=== PATIENT | male | born 1970 | race Caucasian/White ===

== ENCOUNTER 2017-03-28 20:59 | Emergency (ER) | payer OTHER ==
[~2017-03-28] VITALS: Ht 177.8 cm; Wt 104.6 kg
[~2017-03-28 20:59] MED LIST: OXYC1TAB3 PO
[2017-03-28 21:06] VITALS: TEMP 36.5; Ht 177.8 cm; Wt 104.6 kg
[2017-03-28] MEDS ORDERED: ALBUT/IPRATROP 3MG/0.5MG NEB 3 ML VIAL INH STA (22:04)
[2017-03-28 22:31] VITALS: O2SAT 95
[2017-03-28 22:32] LABS: BASO % 0.5 %; BASO ABS # 0.04 K/uL (0-0.2); COMPLETE YES; EOS % 1.1 %; IG% 0.4 %; LYMPH % 41.2 %; MEAN CELL VOLUME 94.5 fL (80-100); MEAN PLATELET VOLUME 9.9 fL (7.4-10.4); MONO % 7.1 %; NEUT % 49.7 %; PLATELET COUNT 150 K/uL (130-400); WHITE BLOOD COUNT 8.01 K/uL (4.8-10.8)
[2017-03-28 22:43] LABS: INR 1.2 (0.9-1.1); PARTIAL THROMBOPLASTIN RATIO 1.1; PROTHROMBIN TIME (PATIENT) 12.4 SECONDS (9.0-12.0)
[2017-03-28 22:50] LABS: BUN/CREATININE RATIO 3.4 (10-20); CALCIUM 8.9 mg/dl (8.5-10.1); CREATININE 0.61 mg/dl (0.60-1.40); MAGNESIUM 2.4 mg/dl (1.8-2.4); POTASSIUM 3.8 mmol/L (3.5-5.1)
[2017-03-28 23:01] LABS: THYROID STIMULATING HORMONE 8.6 uIu/ml (0.300-4.500)
[2017-03-28] MEDS ORDERED: METHYLPREDNISOLONE 125 MG VIAL IV STA (23:11)
[2017-03-29] MEDS ORDERED: ALBUTEROL HFA 8 GM INHALER INH STA (00:25)
[2017-03-29] MEDS ORDERED: AMOXICIL/CLAVU 875MG HOME PACK PO ONE (00:30)
[2017-03-29 01:08] VITALS: BP 141/95; PULSE 85; O2SAT 100
[2017-03-29] MEDS ORDERED: PRED50TA PO (01:18)
[2017-03-29] MEDS ORDERED: AMOX875T PO (01:18)
--- NOTE | 2017-03-29 06:32 | DIAGNOSTIC IMAGING REPORT ---
HEAD WITHOUT CONTRAST (CT) CT DOSE: 537.48 mGy.cm HISTORY: Mental status change right arm tingling TECHNIQUE: Multiaxial CT images of the head were performed without the use of intravenous contrast. A dose lowering technique was utilized adhering to the principles of ALARA. Comparison: None. Findings: The paranasal sinuses and mastoid air cells are clear. The calvarium and skull base are intact. The ventricles and sulci are within normal limits. There is no mass, hematoma, midline shift, or acute infarct. Impression: No acute intracranial abnormality. Left maxillary sinusitis The above report was generated using voice recognition software. It may contain grammatical, syntax or spelling errors. Electronically signed by: Feliciano Ovalle M.D. 03/29/2017 6:31 AM Dictated Date/Time: 03/29/2017 6:28 AM
--- NOTE | 2017-03-29 06:35 | EMERGENCY ROOM VISIT NOTE ---
History First contact with patient: 21:49 Chief Complaint: NEURO SYMPTOMS Stated Complaint: UPPER EXTREM-NUMBNESS & ALCOHOL Nursing Triage Summary: patient has been drinking since 1100 today. Has drank about 12-18 beers. Family got concerned tonight because patient had numbness in 2 fingers on his right hand. Patient also told family that he woke up this working with numbness in right forearm, which resolved on its own. Patient denies any current complaints. Hx HTN and refuses medications. History of Present Illness The patient is a 46 year old male who presents to the Emergency Room with complaints of a few minutes of right arm tingling to the fourth and fifth finger that has now resolved earlier this afternoon who is a known alcoholic and cough with wheezing for the past few weeks who smokes heavily. Patient does not routinely go to the family care doctor. He drinks at least a 12 pack daily. He has the shakes when he does not drink. He has been drinking daily for years. No known history of seizures from alcohol withdrawal but has not gone longer than a few hours without drinking. Patient denies chest pain, weakness, abdominal pain, vomiting, diarrhea, fevers, headache, neck stiffness, bleeding disorders. Patient denies drug use. Review of Systems See HPI for pertinent positives & negatives. A total of 10 systems reviewed and were otherwise negative. Past Medical/Surgical History Alcoholism, hypertension Social History Smoking Status: Current Every Day Smoker Alcohol Use: heavy Drug Use: none Marital Status: Housing Status: lives with family Occupation Status: unemployed Current/Historical Medications Scheduled Amoxicillin & Pot Clavulanate (Augmentin 875-125 mg), 1 TAB PO BID Prednisone (Prednisone), 50 MG PO DAILY Physical Exam Vital Signs Date Time Temp Pulse Resp B/P (MAP) Pulse Ox O2 Delivery O2 Flow Rate FiO2 03/29/17 01:08 85 20 141/95 100 Room Air 03/29/17 01:08 77 03/28/17 22:51 93 146/101 85 154/103 101 135/95 03/28/17 22:42 74 133/104 100 Room Air 03/28/17 22:31 95 Room Air 03/28/17 21:56 75 19 130/91 95 Room Air 03/28/17 21:22 73 03/28/17 21:07 95 Room Air 03/28/17 21:06 36.5 75 93 Room Air Physical Exam VITALS: Vitals are noted on the nurse's note and reviewed by myself. Vital signs stable. GENERAL: Pleasant male with EtOH odor and tobacco odor, in no acute distress, nondiaphoretic, well-developed well-nourished. SKIN: The skin was without rashes, erythema, edema, or bruising. There is no tenting of the skin. Capillary reflex less than 2 seconds. HEAD: Normocephalic atraumatic. EARS: External auditory canals clear, tympanic membranes pearly marcelo without erythema or effusion bilaterally. EYES: Pupils equal round and reactive to light and accommodation. Conjunctivae with injection, sclerae without icterus. Extraocular movements intact. NOSE: Patent, turbinates without inflammation or discharge. No sinus tenderness. MOUTH: Mucous membranes mildly dry. Pharynx without erythema or exudate. Uvula midline. Airway patent. Tongue does not deviate. NECK: Supple without nuchal rigidity. No lymphadenopathy. No thyromegaly. Cervical spine is nontender. No JVD. HEART: Regular rate and rhythm without murmurs gallops or rubs. LUNGS: Diffuse inspiratory and end expiratory wheezes. No dullness to percussion. No retractions or accessory muscle use. ABDOMEN: Positive bowel sounds x 4. Normal tympanic percussion. Soft, protuberant, obese, nontender, without masses or organomegaly. Olmos sign negative. No guarding or rebound tenderness. MUSCULOSKELETAL: No muscle atrophy, erythema,noted. Minimal peripheral edema to lower extremities NEURO: Patient was alert and oriented to person place and time. Normal sensation to light and sharp touch. No focal neurological deficits. Cranial nerves II through XII grossly intact. 5 out of 5 strength throughout. Medical Decision & Procedures Laboratory Results 03/28/17 22:23 Red Blood Count 5.50, Mean Corpuscular Volume 94.5, Mean Corpuscular Hemoglobin 34.0, Mean Corpuscular Hemoglobin Concent 36.0, Mean Platelet Volume 9.9, Neutrophils (%) (Auto) 49.7, Lymphocytes (%) (Auto) 41.2, Monocytes (%) (Auto) 7.1, Eosinophils (%) (Auto) 1.1, Basophils (%) (Auto) 0.5, Neutrophils # (Auto) 3.98, Lymphocytes # (Auto) 3.30, Monocytes # (Auto) 0.57, Eosinophils # (Auto) 0.09, Basophils # (Auto) 0.04 03/28/17 22:23 Test 03/28/17 22:23 03/28/17 22:28 White Blood Count 8.01 K/uL (4.8-10.8) Red Blood Count 5.50 M/uL (4.7-6.1) Hemoglobin 18.7 g/dL (14.0-18.0) Hematocrit 52.0 % (42-52) Mean Corpuscular Volume 94.5 fL (80-100) Mean Corpuscular Hemoglobin 34.0 pg (25-34) Mean Corpuscular Hemoglobin Concent 36.0 g/dl (32-36) Platelet Count 150 K/uL (130-400) Mean Platelet Volume 9.9 fL (7.4-10.4) Neutrophils (%) (Auto) 49.7 % Lymphocytes (%) (Auto) 41.2 % Monocytes (%) (Auto) 7.1 % Eosinophils (%) (Auto) 1.1 % Basophils (%) (Auto) 0.5 % Neutrophils # (Auto) 3.98 K/uL (1.4-6.5) Lymphocytes # (Auto) 3.30 K/uL (1.2-3.4) Monocytes # (Auto) 0.57 K/uL (0.11-0.59) Eosinophils # (Auto) 0.09 K/uL (0-0.5) Basophils # (Auto) 0.04 K/uL (0-0.2) RDW Standard Deviation 45.5 fL (36.4-46.3) RDW Coefficient of Variation 13.1 % (11.5-14.5) Immature Granulocyte % (Auto) 0.4 % Immature Granulocyte # (Auto) 0.03 K/uL (0.00-0.02) Prothrombin Time 12.4 SECONDS (9.0-12.0) Prothromb Time International Ratio 1.2 (0.9-1.1) Activated Partial Thromboplast Time 28.7 SECONDS (21.0-31.0) Partial Thromboplastin Ratio 1.1 Anion Gap 7.0 mmol/L (3-11) Est Creatinine Clear Calc Drug Dose 185.2 ml/min Estimated GFR () 139.8 Estimated GFR (Non- 120.6 BUN/Creatinine Ratio 3.4 (10-20) Calcium Level 8.9 mg/dl (8.5-10.1) Magnesium Level 2.4 mg/dl (1.8-2.4) Total Bilirubin 0.6 mg/dl (0.2-1) Direct Bilirubin 0.2 mg/dl (0-0.2) Aspartate Amino Transf (AST/SGOT) 107 U/L (15-37) Alanine Aminotransferase (ALT/SGPT) 62 U/L (12-78) Alkaline Phosphatase 122 U/L (45-117) Total Protein 7.9 gm/dl (6.4-8.2) Albumin 3.6 gm/dl (3.4-5.0) Thyroid Stimulating Hormone (TSH) 8.600 uIu/ml (0.300-4.500) Ethyl Alcohol mg/dL 260.7 mg/dl (0-3) Bedside Troponin I < 0.030 ng/ml (0-0.045) Medications Administered Medications (Trade) Dose Ordered Sig/Mariano Route Start Time Stop Time Status Last Admin Dose Admin Albuterol/ Ipratropium (Duoneb) 3 ml NOW STAT INH 03/28/17 22:04 03/28/17 22:05 DC 03/28/17 22:30 3 ML Methylprednisolone Sodium Succinate (Solu-Medrol IV) 125 mg NOW STAT IV 03/28/17 23:11 03/28/17 23:12 DC 03/28/17 23:21 125 MG Albuterol (Ventolin Hfa Inhaler) 2 puffs ONE STAT INH 03/29/17 00:25 03/29/17 00:26 DC 03/29/17 01:06 2 PUFFS Amoxicillin/ Clavulanate Potassium (Augmentin 875MG Home Pack) 1 homepack UD ONCE PO 03/29/17 00:30 03/29/17 00:31 DC 03/29/17 01:06 1 HOMEPACK ED Course Prior records/ancillary studies reviewed and summarized above. Nursing notes reviewed. Additional history obtained from family The patient's history was concerning for alcoholism with brief episode tingling in his right arm with breathing problems Differential diagnosis: Etiologies such as alcoholism, COPD, metabolic, infection, hypo/hyperglycemia, electrolyte abnormalities, cardiac sources, intracerebral event, toxicologic, neurologic, as well as others were entertained. Physical examination: As above. ER treatment provided: IV Lock By mouth fluids On reassessment the patient felt better. Diagnostics interpretation by me: ECG: Normal sinus, normal intervals, poor baseline, no acute ST-T wave changes, rate of 71. Impression normal sinus rhythm interpreted by myself The labs revealed stable H&H. INR 1.2. Alcohol 260. 2 troponins that are negative that are greater than 2 hours apart Imaging studies: Head CT with atrophy and sinusitis per stat radiology Exam and history seem consistent with COPD and alcoholism and sinus disease on CT imaging. Patient was offered information on rehabilitation for his alcohol is and and declined. Patient was strongly encouraged to quit smoking. Patient is advised take medications as directed and to follow-up family care in a few days or here in the ER sooner for chest pain, difficulty breathing, numbness, tingling, worsening signs or symptoms or as needed. Patient was neurovascularly and neurologically intact. He is well-appearing. No signs of stroke on clinical exam. The tingling could be related to his alcoholism or to an ulnar nerve irritation. By the evaluation outlined above emergent etiologies such as infection, electrolyte abnormalities, cardiac sources, intracerebral event, toxologic, neurologic, abnormalities blood glucose, metabolic, as well as others were deemed relatively unlikely. The pt/family informed about the findings as listed above. All questions were answered and pleased with the treatment. Return instructions were outlined and the patient was discharged in stable condition. Outpatient prescription management: Augmentin, prednisone Referral: The patient was referred back to primary care physician for follow-up in 2 to 3 days for a recheck of the current condition. case reviewed with my Attending Medical Decision As above Head Trauma GCS Score: 15 Medication Reconcilliation Current Medication List: was personally reviewed by me Blood Pressure Screening Patient's blood pressure: Normal blood pressure Impression Primary Impression: COPD exacerbation Additional Impressions: Alcoholism Sinusitis Tingling of right upper extremity Departure Information Dispostion Home / Self-Care Condition GOOD Prescriptions Amoxicillin & Pot Clavulanate (Augmentin 875-125 mg) 1 Tab Tab 1 TAB PO BID for 9 Days, #18 TAB Prov: Karen Cobian PA-C 03/29/17 Prednisone (Prednisone) 50 Mg Tab 50 MG PO DAILY for 4 Days, #4 TAB Prov: Karen Cobian PA-C 03/29/17 Referrals Ml Ruffin M.D. (MEDICAL) (PCP) Patient Instructions My [facility] Problem Qualifiers
--- NOTE | 2017-03-29 07:50 | DIAGNOSTIC IMAGING REPORT ---
TWO VIEW CHEST CLINICAL HISTORY: Cough. FINDINGS: PA and lateral chest radiographs are obtained. No prior studies are available for comparison at the time of dictation. The heart is top normal for projection. The mediastinal contour is within normal limits. There is nonspecific interstitial thickening. No airspace consolidation or pleural effusion is identified. There is no pneumothorax. The skeletal structures are osteopenic. There are healed left-sided rib fractures. IMPRESSION: No acute cardiopulmonary abnormality. Electronically signed by: Nuno Farley M.D. 03/29/2017 7:48 AM Dictated Date/Time: 03/29/2017 7:47 AM
== END 2017-03-29 02:01 | disposition home or self-care (01) ==
LOC: EDBD 20:59 → C.EDA 21:00
DX: J44.1 Chronic obstructive pulmonary disease with (acute) exacerbation (principal); F10.20 Alcohol dependence, uncomplicated; J32.9 Chronic sinusitis, unspecified; R20.2 Paresthesia of skin; F17.200 Nicotine dependence, unspecified, uncomplicated; I10 Essential (primary) hypertension; R40.2412 Glasgow coma scale score 13-15, at arrival to emergency department

== ENCOUNTER 2017-04-01 15:08 | Emergency (ER) | payer OTHER ==
[~2017-04-01] VITALS: Ht 172.7 cm; Wt 100.6 kg
[~2017-04-01 15:08] MED LIST changes: +AMOX875T PO; -OXYC1TAB3 PO; +PRED50TA PO
[2017-04-01 15:19] VITALS: TEMP 37.3; Ht 172.7 cm; Wt 100.6 kg
--- NOTE | 2017-04-01 15:59 | DIAGNOSTIC IMAGING REPORT ---
CHEST ONE VIEW PORTABLE HISTORY: 46 years-old Male hypertension acute hypertension. COMPARISON: Chest radiograph 03/28/2017 TECHNIQUE: Portable upright AP view of the chest FINDINGS: Cardiomediastinal and hilar silhouettes are within normal limits. There is no pneumothorax, pleural effusion, focal airspace consolidation or overt pulmonary edema. Mild chronic blunting of the left costophrenic angle suggests some scarring or atelectasis. Remote fracture of the posterior left fifth rib redemonstrated. Bones appear grossly intact. IMPRESSION: No acute cardiopulmonary process. The above report was generated using voice recognition software. It may contain grammatical, syntax or spelling errors. Electronically signed by: Shaun Prado M.D. 04/01/2017 3:58 PM Dictated Date/Time: 04/01/2017 3:57 PM
[2017-04-01 16:04] LABS: BASO % 0.3 %; BASO ABS # 0.03 K/uL (0-0.2); COMPLETE YES; EOS % 0.4 %; HEMATOCRIT 48.7 % (42-52); IG% 0.5 %; LYMPH % 20.1 %; LYMPH ABS # 2.04 K/uL (1.2-3.4); MEAN CELL VOLUME 94.7 fL (80-100); MEAN CORPUSCULAR HEMOGLOBIN 34.2 pg (25-34); MEAN CORPUSCULAR HGB CONC 36.1 g/dl (32-36); MEAN PLATELET VOLUME 10.1 fL (7.4-10.4); MONO % 7.7 %; PLATELET COUNT 128 K/uL (130-400); RED BLOOD COUNT 5.14 M/uL (4.7-6.1); WHITE BLOOD COUNT 10.15 K/uL (4.8-10.8)
--- NOTE | 2017-04-01 16:04 | EMERGENCY ROOM VISIT NOTE ---
History First contact with patient: 15:27 Chief Complaint: REFERRED BY DOCTOR Stated Complaint: DR WHITING SENT UP HERE History of Present Illness The patient is a 46 year old male who presents to the Emergency Room with complaints of high blood pressure. The patient states that he was seen by his primary care provider today for an ER follow-up visit and told that he needs to come to the emergency department because his blood pressure was high. The patient is an alcoholic and admits to drinking 4-8 of the 32 ounce cans of beer a day. He is a smoker. The patient has a history of hypertension and has been prescribed medication in the past. However, the patient has not been taking his medication for approximately 1.5 years. The patient was seen here a few days ago for a COPD exacerbation and numbness in one of his arms. The numbness has resolved. He states his breathing has improved on the steroids and antibiotics that he was prescribed. The patient denies any complaints at this time. He denies any chest pain, shortness of breath, headache or blurred vision. The patient is not interested in going to rehabilitation for his alcoholism. Review of Systems A complete 10 point review of systems was reviewed with the patient with pertinent positives and negatives as per history of present illness. All else were negative. Social History Smoking Status: Current Every Day Smoker Alcohol Use: heavy Drug Use: none Marital Status: Housing Status: lives with family Occupation Status: unemployed Current/Historical Medications Scheduled Amoxicillin & Pot Clavulanate (Augmentin 875-125 mg), 1 TAB PO BID Prednisone (Prednisone), 50 MG PO DAILY Physical Exam Vital Signs Date Time Temp Pulse Resp B/P (MAP) Pulse Ox O2 Delivery O2 Flow Rate FiO2 04/01/17 17:20 92 16 173/124 95 Room Air 04/01/17 16:12 89 04/01/17 15:50 89 16 172/116 95 Room Air 04/01/17 15:19 37.3 104 18 179/116 96 Room Air Physical Exam VITALS: Vitals are noted on the nurse's note and reviewed by myself. Vital signs stable. GENERAL: This is a 46-year-old male, unkempt appearing, well-developed well- nourished. HEAD: Normocephalic atraumatic. EARS: External auditory canals clear, tympanic membranes pearly marcelo without erythema or effusion bilaterally. EYES: Pupils equal round and reactive to light and accommodation. Mild scleral icterus. No papilledema on funduscopic exam. MOUTH: Mucous membranes slightly dry. NECK: Supple without nuchal rigidity. HEART: Regular rate and rhythm without murmurs gallops or rubs. LUNGS: Clear to auscultation bilaterally without wheezes, rales or rhonchi. MUSCULOSKELETAL: Strength 5/5 throughout. NEURO: Patient was alert and oriented to person place and time. Normal sensation to light and sharp touch. Medical Decision & Procedures Laboratory Results 04/01/17 15:45 Red Blood Count 5.14, Mean Corpuscular Volume 94.7, Mean Corpuscular Hemoglobin 34.2, Mean Corpuscular Hemoglobin Concent 36.1, Mean Platelet Volume 10.1, Neutrophils (%) (Auto) 71.0, Lymphocytes (%) (Auto) 20.1, Monocytes (%) (Auto) 7.7, Eosinophils (%) (Auto) 0.4, Basophils (%) (Auto) 0.3, Neutrophils # (Auto) 7.21, Lymphocytes # (Auto) 2.04, Monocytes # (Auto) 0.78, Eosinophils # (Auto) 0.04, Basophils # (Auto) 0.03 04/01/17 15:45 Test 04/01/17 15:45 White Blood Count 10.15 K/uL (4.8-10.8) Red Blood Count 5.14 M/uL (4.7-6.1) Hemoglobin 17.6 g/dL (14.0-18.0) Hematocrit 48.7 % (42-52) Mean Corpuscular Volume 94.7 fL (80-100) Mean Corpuscular Hemoglobin 34.2 pg (25-34) Mean Corpuscular Hemoglobin Concent 36.1 g/dl (32-36) Platelet Count 128 K/uL (130-400) Mean Platelet Volume 10.1 fL (7.4-10.4) Neutrophils (%) (Auto) 71.0 % Lymphocytes (%) (Auto) 20.1 % Monocytes (%) (Auto) 7.7 % Eosinophils (%) (Auto) 0.4 % Basophils (%) (Auto) 0.3 % Neutrophils # (Auto) 7.21 K/uL (1.4-6.5) Lymphocytes # (Auto) 2.04 K/uL (1.2-3.4) Monocytes # (Auto) 0.78 K/uL (0.11-0.59) Eosinophils # (Auto) 0.04 K/uL (0-0.5) Basophils # (Auto) 0.03 K/uL (0-0.2) RDW Standard Deviation 45.7 fL (36.4-46.3) RDW Coefficient of Variation 13.1 % (11.5-14.5) Immature Granulocyte % (Auto) 0.5 % Immature Granulocyte # (Auto) 0.05 K/uL (0.00-0.02) Anion Gap 5.0 mmol/L (3-11) Est Creatinine Clear Calc Drug Dose 160.0 ml/min Estimated GFR () 134.5 Estimated GFR (Non- 116.0 BUN/Creatinine Ratio 6.4 (10-20) Calcium Level 8.4 mg/dl (8.5-10.1) Total Bilirubin 1.6 mg/dl (0.2-1) Aspartate Amino Transf (AST/SGOT) 113 U/L (15-37) Alanine Aminotransferase (ALT/SGPT) 83 U/L (12-78) Alkaline Phosphatase 92 U/L (45-117) Troponin I < 0.015 ng/ml (0-0.045) Total Protein 7.2 gm/dl (6.4-8.2) Albumin 3.4 gm/dl (3.4-5.0) Globulin 3.8 gm/dl (2.5-4.0) Albumin/Globulin Ratio 0.9 (0.9-2) ECG Rate (beats per minute): 84 Rhythm: normal sinus Findings: no acute ischemic change, no ectopy Medical Decision Differential diagnosis includes hypertension, hypertensive emergency, among others. The patient is a 46-year-old male who presents today for evaluation of high blood pressure. The patient was sent here by his primary care provider. He has a history of high blood pressure and has not been taking his medication. Labs revealed mild thrombocytopenia as well as elevation of LFTs consistent with patient's alcoholism. Labs are otherwise unremarkable. There is no evidence of end organ dysfunction secondary to the patient's hypertension. Troponin is not elevated. EKG is unremarkable. I do not feel that the patient requires urgent lowering of his blood pressure. He has been sent a prescription for lisinopril/hydrochlorothiazide to the pharmacy. He was encouraged to fill this and begin taking it daily. I advised him to follow up with his primary care provider next week for a recheck of his blood pressure. The patient remained asymptomatic throughout his stay in the emergency department. The patient's case was reviewed with Dr. Ha, ED attending physician, who agreed with my assessment and treatment plan. Based on the patient's presentation and work up, I feel the patient is stable for outpatient treatment. The patient was educated to return to the emergency department for any worsening of their current condition or new/concerning symptoms. He will follow up with his primary care provider. Medication Reconcilliation Current Medication List: was personally reviewed by me Blood Pressure Screening Patient's blood pressure: Elevated blood pressure Blood pressure disposition: Referred to PCP Impression Primary Impression: Hypertension Departure Information Dispostion Home / Self-Care Condition GOOD Referrals Ml Whiting M.D. (MEDICAL) (PCP) Patient Instructions My [facility] [employer] Additional Instructions Take your blood pressure medication daily as prescribed. Try to decrease your alcohol use. Follow-up with your primary care provider for a recheck of your blood pressure next week. Return to the emergency department with any chest pain, shortness of breath, headaches, blurred vision or other new/concerning symptoms.
[2017-04-01 16:22] LABS: ALT/SGPT 83 U/L (12-78); AST/SGOT 113 U/L (15-37); BLOOD UREA NITROGEN 4 mg/dl (7-18); BUN/CREATININE RATIO 6.4 (10-20); CALCIUM 8.4 mg/dl (8.5-10.1); CARBON DIOXIDE 33 mmol/L (21-32); CHLORIDE 95 mmol/L (98-107); CREATININE 0.67 mg/dl (0.60-1.40); GLUCOSE 105 mg/dl (70-99); POTASSIUM 3.5 mmol/L (3.5-5.1); SODIUM 133 mmol/L (136-145)
[2017-04-01 16:26] LABS: ALB/GLOB RATIO 0.9 (0.9-2); ALKALINE PHOSPHATASE 92 U/L (45-117)
[2017-04-01 17:20] VITALS: BP 173/124; PULSE 92; O2SAT 95
== END 2017-04-01 17:41 | disposition home or self-care (01) ==
LOC: C.EDB 15:09 → C.EDC 17:41
DX: I10 Essential (primary) hypertension (principal); J44.9 Chronic obstructive pulmonary disease, unspecified; F10.20 Alcohol dependence, uncomplicated; F17.210 Nicotine dependence, cigarettes, uncomplicated

== ENCOUNTER 2019-01-18 19:52 | Inpatient (IN) ==
[2019-01-18] MEDS ORDERED: MULTI-VITAMIN INFUSION 10 ML, THIAMINE HCL 100 MG, FOLIC ACID 1 MG in SODIUM CHLORIDE 0... IV STA (20:16)
[2019-01-18 20:43] LABS: Basophils # (auto) 0.05 K/uL (0-0.2); Basophils % (auto) 0.4 %; Eosinophils # (auto) 0.07 K/uL (0-0.5); Eosinophils % (auto) 0.5 %; Hematocrit (blood only) 39.7 % (42-52); Hemoglobin 14.3 g/dL (14.0-18.0); Immature Granulocytes # (auto) 0.08 K/uL (0.00-0.02); Immature Granulocytes % (auto) 0.6 %; Lymphocytes # (auto) 3.36 K/uL (1.2-3.4); Lymphocytes % (auto) 25.4 %; Mean Platelet Volume 10.1 fL (7.4-10.4); Monocytes # (auto) 1.31 K/uL (0.11-0.59); Monocytes % (auto) 9.9 %; Neutrophils # (auto) 8.37 K/uL (1.4-6.5); Neutrophils % (auto) 63.2 %; Platelet Count 163 K/uL (130-400); RDW Coefficient of Variation 14.5 % (11.5-14.5); RDW Standard Deviation 52.8 fL (36.4-46.3); Red Blood Count 3.97 M/uL (4.7-6.1); White Blood Count 13.24 K/uL (4.8-10.8)
--- NOTE | 2019-01-18 20:52 | XRay Report ---
XR chest 1V portable HISTORY: Atypical Chest Pain COMPARISON: Chest 04/01/2017. FINDINGS: The lungs are clear. The heart is normal in size. No pleural effusions. No pneumothorax. Ol d, healed left-sided rib fractures. IMPRESSION: No significant change compared to the prior study. No acute process. Electronically signed by: Rey Wang M.D. 01/18/2019 8:50 PM
[2019-01-18 21:00] LABS: INR 1.4 (0.9-1.1); Prothrombin Time 14.3 Seconds (9.0-12.0)
[2019-01-18 21:06] LABS: Alanine Aminotransferase 35 U/L (12-78); Albumin Level 2.8 gm/dl (3.4-5.0); Aspartate Aminotransferase 85 U/L (15-37); BUN Creatinine Ratio 4.4 (10-20); Bilirubin Direct 1.2 mg/dl (0-0.2); Blood Urea Nitrogen 3 mg/dl (7-18); Calcium 7.7 mg/dl (8.5-10.1); Carbon Dioxide 29 mmol/L (21-32); Chloride 98 mmol/L (98-107); Est GFR (African American) 138.8; Est GFR (Non-African American) 119.7; Glucose 93 mg/dl (70-99); Magnesium 1.9 mg/dl (1.8-2.4); Potassium 3.4 mmol/L (3.5-5.1); Sodium 135 mmol/L (136-145)
[2019-01-18 21:09] LABS: Albumin Globulin Ratio 0.6 (0.9-2); Alkaline Phosphatase 145 U/L (45-117); Bilirubin,Total 2.8 mg/dl (0.2-1); Phosphorus 2.3 mg/dl (2.5-4.9); Total Protein 7.8 gm/dl (6.4-8.2); Troponin I < 0.015 ng/ml (0-0.045)
[2019-01-18] MEDS ORDERED: VANCOMYCIN HCL 2,000 MG in SODIUM CHLORIDE 0.9% 500 ML IV ONE (23:35)
[2019-01-18] MEDS ORDERED: VANCOMYCIN CONSULT ACTIVE PRN (23:35)
[2019-01-18] MEDS ORDERED: CEFEPIME 2,000 MG/20 ML VIAL IV STA (23:35)
--- NOTE | 2019-01-18 23:43 | Emergency Department Note ---
Entered by Betty Garcia acting as a scribe for Jax Ha MD History of Present Illness General Chief complaint: Leg Injury/Pain Stated complaint: LEFT LEG SWELLING AND TURNING PURPLE Time Seen by Provider: 01/18/19 20:00 Source: patient History of Present Illness Provider complaint: leg pain Onset (ago): month(s) 1 Location: lower extremity and left Pain Consistency: + other (worsening) Maximum Pain Intensity: 7 Relieved By: + none Associated symptoms: + other (-diarrhea, +left leg swelling); no cough, no fever/chills and no nausea/vomiting The patient is a 48 year old male who presents to the Emergency Room with complaints of worsening left leg pain that started a month ago. The patient reports that his left leg started to swell and the pain worsened. He denies any fever, chills, nausea, vomiting, diarrhea, or cough. He notes that he has a history of alcoholism and notes that he drinks five 32 oz beers a day. Home Medications Home Medications Medication Instructions Recorded Confirmed Type ibuprofen [Advil] 400 - 800 mg PO TID PRN 01/18/19 01/18/19 History Allergies Allergy/AdvReac Type Severity Reaction Status Date / Time No Known Allergies Allergy Unverified 03/28/17 21:27 Past Med/Surg History Medical History Alcoholism (Acute) Social History Feels Safe at Home: Yes Smoking Status: Current every day smoker Review of Systems See HPI for pertinent positives & negatives. and A total of 10 systems reviewed and were otherwise negative Physical Exam Vital Signs Vital Signs - 24 hr 01/18/19 19:56 01/18/19 20:39 01/18/19 22:03 Temperature 37.2 C Temperature Source Oral Sepsis Recent Fever Within 48 Hours No Sepsis New/Unexplained Change in Mental Status No Sepsis Action Taken by Nursing No Action Required Pulse Rate 93 H 99 H Pulse Rhythm Regular Respiratory Rate 18 25 H Respiratory Effort / Characteristics Non-Labored Spontaneous Respiratory Depth Normal Respiratory Pattern Regular Blood Pressure 171/93 H 168/109 H Blood Pressure [Right Arm] Blood Pressure Mean 119 128 Blood Pressure Mean [Right Arm] Blood Pressure Position Sitting Pulse Oximetry 98 96 Oxygen Delivery Method Room Air Room Air 01/18/19 22:09 01/18/19 22:30 01/18/19 23:35 Temperature Temperature Source Sepsis Recent Fever Within 48 Hours Sepsis New/Unexplained Change in Mental Status Sepsis Action Taken by Nursing Pulse Rate 104 H 105 H Pulse Rhythm Respiratory Rate 26 H 21 20 Respiratory Effort / Characteristics Non-Labored Spontaneous Respiratory Depth Normal Respiratory Pattern Blood Pressure Blood Pressure [Right Arm] 159/97 H Blood Pressure Mean Blood Pressure Mean [Right Arm] 117 Blood Pressure Position Pulse Oximetry 98 Oxygen Delivery Method Room Air GENERAL: Awake, alert, unkempt/discheveled-appearing, in no distress. HENT: Normocephalic, atraumatic. Oropharynx with dry mucous membranes and poor dentition. EYES: Normal conjunctiva. Sclera with mild icterus. EOMI. No nystamgus. PEARRL. NECK: Supple. No nuchal rigidity. FROM. No JVD. RESPIRATORY: CTAB. CARDIAC: Regular rate, normal rhythm. Extremities warm and well perfused. Pulses equal. ABDOMEN: Distended abdomen, but soft. No tenderness to palpation. No rebound or guarding. No masses. RECTAL: Deferred. MUSCULOSKELETAL: Chest examination reveals no tenderness. The back is symmetrical on inspection without obvious abnormality. There is no CVA tenderness to palpation. No joint edema. LOWER EXTREMITIES: 3 + pitting edema of left lower extremity with mild erythema and warmth extending from from mid-thight to foot. Distal PMS intact. 2+ pitting edema to the right lower extremity. NEURO: Normal sensorium. No sensory or motor deficits noted. SKIN: Warm and dry. No jaundice noted. Course 2009: The patient was evaluated in room B8, and a complete history and physical examination were performed. 2340: Case was discussed with Dr. Gonzales, [facility] hospitalist, who will evaluate the patient for admission. Administered Medications Ioversol (Optiray 320 100ml) 94 ml IV ONCE PRN PRN Reason: Interaction Checking Stop: 01/23/19 00:56 Last Admin: 01/19/19 00:58 Dose: 94 ml Documented by: [id number] Discontinued Medications Gabapentin (Neurontin) 1,200 mg PO ONE STA Stop: 01/18/19 23:58 Last Admin: 01/19/19 00:24 Dose: 1,200 mg Documented by: [id number] Multivitamins 10 ml/ Thiamine HCl 100 mg/ Folic Acid 1 mg/Sodium Chloride 1,011.2 mls @ 1,011.2 mls/hr IV .Q1H STA Stop: 01/18/19 21:15 Last Infusion: 01/18/19 22:29 Dose: 0 mls/hr Documented by: [id number] Admin: 01/18/19 21:06 Dose: 1,011.2 mls/hr Documented by: [id number] Cefepime HCl (Maxipime) 2,000 mg in 20 mls @ 5 mls/min IV NOW STA; Protocol Stop: 01/18/19 23:38 Last Admin: 01/19/19 00:25 Dose: 5 mls/min Documented by: [id number] Multivitamins 10 ml/ Thiamine HCl 100 mg/ Folic Acid 1 mg/Sodium Chloride 1,011.2 mls @ 1,011.2 mls/hr IV .Q1H MCKENZIE Stop: 01/19/19 00:44 Last Infusion: 01/19/19 01:57 Dose: 0 mls/hr Documented by: [id number] Admin: 01/19/19 00:18 Dose: 1,011.2 mls/hr Documented by: [id number] Lorazepam (Ativan) 1 mg in 2 mls @ 2 mls/min IV NOW STA Stop: 01/18/19 23:54 Last Admin: 01/19/19 00:18 Dose: 2 mls/min Documented by: [id number] Piperacillin Sod/Tazobactam Sod (Zosyn) 4.5 gm in 120 mls @ 240 mls/hr IV NOW ONE Stop: 01/19/19 01:05 Last Admin: 01/19/19 00:47 Dose: 240 mls/hr Documented by: [id number] Lorazepam (Ativan) 1 mg in 2 mls @ 2 mls/min IV NOW STA Stop: 01/19/19 00:38 Last Admin: 01/19/19 01:08 Dose: 2 mls/min Documented by: [id number] Piperacillin Sod/Tazobactam Sod (Zosyn) Confirm Administered Dose 4.5 gm .ROUTE .STK-MED ONE Stop: 01/19/19 00:39 Last Admin: 01/19/19 00:48 Dose: Not Given Documented by: [id number] Potassium Chloride (Klor-Con M20) 40 meq PO NOW STA Stop: 01/18/19 23:48 Last Admin: 01/19/19 00:24 Dose: 40 meq Documented by: [id number] Medical Decision Making Differential Diagnosis Differential diagnosis: Etiologies such as DVT, musculoskeletal, infection, joint effusion, trauma, lymphedema, idiopathic, CHF, as well as others were entertained. Medical Records Attestation: I reviewed the patient's medical records. Home Medications Current Medication List: was personally reviewed by me Laboratory Data Attestation: I reviewed the patient's lab results. Result diagrams: 01/18/19 20:32 01/18/19 20:32 Lab Results 01/18/19 01/18/19 01/18/19 Range/Units 20:32 20:32 20:32 WBC 13.24 H (4.8-10.8) K/uL RBC 3.97 L (4.7-6.1) M/uL Hgb 14.3 (14.0-18.0) g/dL Hct 39.7 L (42-52) % MCV 100.0 (80-100) fL MCH 36.0 H (25-34) pg MCHC 36.0 (32-36) g/dL RDW Std Deviation 52.8 H (36.4-46.3) fL RDW Coeff of Mac 14.5 (11.5-14.5) % Plt Count 163 (130-400) K/uL MPV 10.1 (7.4-10.4) fL Immature Gran % (Auto) 0.6 % Neut % (Auto) 63.2 % Lymph % (Auto) 25.4 % Hood % (Auto) 9.9 % Eos % (Auto) 0.5 % Baso % (Auto) 0.4 % Immature Gran # (Auto) 0.08 H (0.00-0.02) K/uL Neut # (Auto) 8.37 H (1.4-6.5) K/uL Lymph # (Auto) 3.36 (1.2-3.4) K/uL Hood # (Auto) 1.31 H (0.11-0.59) K/uL Eos # (Auto) 0.07 (0-0.5) K/uL Baso # (Auto) 0.05 (0-0.2) K/uL PT 14.3 H (9.0-12.0) Seconds INR 1.4 H (0.9-1.1) Sodium 135 L (136-145) mmol/L Potassium 3.4 L (3.5-5.1) mmol/L Chloride 98 (98-107) mmol/L Carbon Dioxide 29 (21-32) mmol/L Anion Gap 8.0 (3-11) BUN 3 L (7-18) mg/dl Creatinine 0.60 (0.6-1.4) mg/dl Est Cr Clr Drug Dosing 177.0 ml/min Est GFR ( Amer) 138.8 Est GFR (Non-Af Amer) 119.7 BUN/Creatinine Ratio 4.4 L (10-20) Glucose 93 (70-99) mg/dl Lactate (0.4-2.0) mmol/L Calcium 7.7 L (8.5-10.1) mg/dl Phosphorus 2.3 L (2.5-4.9) mg/dl Magnesium 1.9 (1.8-2.4) mg/dl Total Bilirubin 2.8 H (0.2-1) mg/dl Direct Bilirubin 1.2 H (0-0.2) mg/dl AST 85 H (15-37) U/L ALT 35 (12-78) U/L Alkaline Phosphatase 145 H (45-117) U/L Total Creatine Kinase 151 (39-308) U/L Troponin I < 0.015 (0-0.045) ng/ml Total Protein 7.8 (6.4-8.2) gm/dl Albumin 2.8 L (3.4-5.0) gm/dl Globulin 5.0 H (2.5-4.0) gm/dl Albumin/Globulin Ratio 0.6 L (0.9-2) Lipase 273 (73-393) U/L TSH 4.620 H (0.300-4.500) uIu/ml Free T4 1.21 (0.8-1.6) ng/dl Ethyl Alcohol mg/dL (0-3) mg/dl 01/18/19 01/19/19 Range/Units 20:50 00:08 WBC (4.8-10.8) K/uL RBC (4.7-6.1) M/uL Hgb (14.0-18.0) g/dL Hct (42-52) % MCV (80-100) fL MCH (25-34) pg MCHC (32-36) g/dL RDW Std Deviation (36.4-46.3) fL RDW Coeff of Mac (11.5-14.5) % Plt Count (130-400) K/uL MPV (7.4-10.4) fL Immature Gran % (Auto) % Neut % (Auto) % Lymph % (Auto) % Hood % (Auto) % Eos % (Auto) % Baso % (Auto) % Immature Gran # (Auto) (0.00-0.02) K/uL Neut # (Auto) (1.4-6.5) K/uL Lymph # (Auto) (1.2-3.4) K/uL Hood # (Auto) (0.11-0.59) K/uL Eos # (Auto) (0-0.5) K/uL Baso # (Auto) (0-0.2) K/uL PT (9.0-12.0) Seconds INR (0.9-1.1) Sodium (136-145) mmol/L Potassium (3.5-5.1) mmol/L Chloride (98-107) mmol/L Carbon Dioxide (21-32) mmol/L Anion Gap (3-11) BUN (7-18) mg/dl Creatinine (0.6-1.4) mg/dl Est Cr Clr Drug Dosing ml/min Est GFR ( Amer) Est GFR (Non-Af Amer) BUN/Creatinine Ratio (10-20) Glucose (70-99) mg/dl Lactate 1.6 (0.4-2.0) mmol/L Calcium (8.5-10.1) mg/dl Phosphorus (2.5-4.9) mg/dl Magnesium (1.8-2.4) mg/dl Total Bilirubin (0.2-1) mg/dl Direct Bilirubin (0-0.2) mg/dl AST (15-37) U/L ALT (12-78) U/L Alkaline Phosphatase (45-117) U/L Total Creatine Kinase (39-308) U/L Troponin I (0-0.045) ng/ml Total Protein (6.4-8.2) gm/dl Albumin (3.4-5.0) gm/dl Globulin (2.5-4.0) gm/dl Albumin/Globulin Ratio (0.9-2) Lipase (73-393) U/L TSH (0.300-4.500) uIu/ml Free T4 (0.8-1.6) ng/dl Ethyl Alcohol mg/dL 192.4 H (0-3) mg/dl Imaging Data Radiologist's Impression: Radiology results as stated below per my review and the radiologist's interpretation: XR chest 1V portable HISTORY: Atypical Chest Pain COMPARISON: Chest 04/01/2017. FINDINGS: The lungs are clear. The heart is normal in size. No pleural effusions. No pneumothorax. Old, healed left-sided rib fractures. IMPRESSION: No significant change compared to the prior study. No acute process. Electronically signed by: Rey Wang M.D. 01/18/2019 8:50 PM PreliminaryFindingsOnly See Final Report For Complete Findings US VENOUS BILATERAL LOWER EXTREMITIES: No DVT demonstrated. Soft tissue edema. Radiologist: Ion Hartmann M.D. Study ready at 23:26 and initial results transmitted at 23:33 ECG Data Attestation: I personally reviewed and interpreted this ECG as follows: Indication: weakness Rate (beats per minute): 85 Rhythm: normal sinus Findings: + other (normal axis and intervals) Comparison ECG Date: no prior available Blood Pressure Blood Pressure Findings: Elevated blood pressure MDM Narrative The patient is a 48-year-old gentleman with a past medical history of alcoholism, COPD who presents emergency department for worsening left lower extremity redness warmth over the past month finally coming to be medically evaluated as the patient's mother had discovered the symptoms and motivated him to come to the hospital per hpi. On arrival the patient is unkept/disheveled with odor of EtOH. Patient has mild abdominal distention but is soft and nonte nder. 3+ left lower extremity edema with mild erythema and warmth. Right lower extremity with 2+ pitting edema. EKG without overt acute ischemia. Chest x-ray negative for acute process. Bilateral lower extremity duplexes negative for DVT per preliminary stat read read. WBC 13.2, nonspecific. H/H 14.3/39.7. Platelets within normal limits. Patient's INR is elevated at 1.4 which is increased from 1.2 in 2017. Chemistry without acidosis. Creatinine within normal limits. Patient does have elevated bilirubin from 2017 with total bilirubin 2.8 and direct bilirubin 1.2 and AST 85. Troponin is negative. EtOH is 192. Given no fevers or abdominal pain, SBP unlikely. Given no DVT patient's left lower extremity erythema and warmth is most consistent with cellulitis. Considering extent of cellulitis will initiate treatment with Vancomycine and Cefepime. Additionally given the patient's worsening findings consistent with alcoholic cirrhosis reasonable to admit the patient for further evaluation. CT abdomen pelvis ordered for further clarification. Patient given Ativan and placed on CIWA given likely eventual etoh withdrawal. Case was discussed with Dr. Gonzales, [facility] hospitalist, who will evaluate the patient for admission. Impression & Plan Cellulitis, Alcoholism, Cirrhosis, Hypertension, portal Critical Care Time Critical Care Time: Yes Total Critical Care Time: 35 I have personally spent greater than 35 minutes of critical care time in the direct management of this patient. This includes bedside care, interpretation o f diagnostic studies, and testing, discussion with consultants, patient, and family members, and other required patient management activities. This 35 minutes is in excess of all separately billable procedures. Discharge Plan Visit Data Chief Complaint: Leg Injury/Pain Stated Complaint: LEFT LEG SWELLING AND TURNING PURPLE ED Provider: Jax Ha Discharge Problem: Cellulitis, Alcoholism, Cirrhosis, Hypertension, portal Discharge Instructions Interventions: ED Discharge Assessment Last Done: 01/19/19 01:17 Discharge Problem: Cellulitis Qualifiers: Site of cellulitis: extremity Site of cellulitis of extremity: lower extremity Laterality: left Qualified Code(s): L03.116 - Cellulitis of left lower limb The scribe's documentation has been prepared under my direction and personally reviewed by me in its entirety. I confirm that the note above accurately reflects all work, treatment, procedures, and medical decision making performed by me.
[2019-01-18] MEDS ORDERED: MULTI-VITAMIN INFUSION 10 ML, THIAMINE HCL 100 MG, FOLIC ACID 1 MG in SODIUM CHLORIDE 0... IV SCH (23:45)
[2019-01-18] MEDS ORDERED: POTASSIUM CHLORIDE 20 MEQ TABCR PO STA (23:47)
[2019-01-18] MEDS ORDERED: GABAPENTIN 800 MG TAB PO STA (23:51)
[2019-01-18] MEDS ORDERED: LORazepam 1 MG/2 ML VIAL IV STA (23:53)
[2019-01-18] MEDS ORDERED: GABAPENTIN 600 MG TAB PO STA (23:57)
[2019-01-19 00:26] LABS: T4 Free Thyroxine 1.21 ng/dl (0.8-1.6)
[2019-01-19] MEDS ORDERED: PIPERACILL/TAZOBAC CONSULT ACTIVE PRN (00:36)
[2019-01-19] MEDS ORDERED: PIPERACILLIN/TAZOBACTAM 4.5 GM/120 ML BAG IV ONE (00:36)
[2019-01-19] MEDS ORDERED: LORazepam 1 MG/2 ML VIAL IV STA (00:37)
[2019-01-19] MEDS ORDERED: PIPERACILLIN/TAZOBACTAM 4.5 GM/120ML D5W ONE (00:38)
--- NOTE | 2019-01-19 00:48 | History & Physical Report ---
Date of Service January 19, 2019 Assessment & Plan (1) Sepsis: Secondary to LLE cellulitis secondary to cat bite Patient refused to seek medical attention until last night. rule out osteomyelitis given protracted history hypertension, elevated secondary to illness and alcohol withdrawal COPD as per records, lung status at baseline Cirrhosis on CT, new diagnosis likely secondary to alcoholism ongoing tobacco/alcohol abuse Medical telemetry Cultures, check lactic acid Zosyn for now Plain x-ray of the left tibia-fibula RE RLE swelling of 1 month duration May need MRI to definitively rule out osteomyelitis if no findings on plain x- ray. Facilitate home lisinopril, may need titration DT precautions Outpatient GI consult for new diagnosis of cirrhosis Nicotine patch DVT prophylaxis Lovenox subcu Full code History of Present Illness Chief Complaint: Left leg swelling Primary Care Provider: Dr. Mejia History obtained from patient, family, and records. Medical history significant for hypertension, gout, COPD as per records, ongoing tobacco/alcohol abuse. Last month, patient bit by household cat on the left leg. Progressive swelling over the next few weeks. Patient refused to seek medical attention. Self-medication with topical antibiotic Rx as per . No chest pain, no S OB. Abdomen distended but not painful as per patient. At the ER, patient received Cefepime for sepsis. Medical History as above TDAP January 2010 No prior history of alcohol withdrawal seizures or confinement for alcohol withdrawal as per patient family. Surgical History : Penile wart fulguration, right forearm surgery Family History : Heart disease Personal/Social history : 1.5 packs daily, daily alcohol intake, unemployed Allergies Allergy/AdvReac Type Severity Reaction Status Date / Time No Known Allergies Allergy Unverified 03/28/17 21:27 Home Medications Home Medications Medication Instructions Recorded Confirmed Type ibuprofen [Advil] 400 - 800 mg PO TID PRN 01/18/19 01/18/19 History Past Med/Surg History Medical History Alcoholism (Acute) Social History Preferred Language: Gabonese Communication Ability: Impaired Communication Ability Comment: somnolant Milk Pasteurizer Required: No Current Living Situation: Alone Feels Safe at Home: Yes Smoking Status: Current every day smoker Tobacco Type: cigarettes ; Hx Alcohol Use: Yes Alcohol type: beer Review of Systems Review of Systems: As per HPI, all 10 systems reviewed, all other ROS negative Physical Exam Physical Exam: GENERAL: Uncomfortable, anxious, tremulous, obese, unkempt, no respiratory distress, alcoholic fetor SKIN: Normal color, warm HEENT: Goehner palpebral conjunctivae, no ptosis, black discoloration upper lip, dry buccal mucosa NECK : Supple, short neck, no tenderness CHEST : Decreased breath sounds, no tenderness HEART : Tachycardic, no obvious murmurs ABDOMEN: distention, nontender EXTREMITIES : L lower leg induration with tenderness, no other conspicuous deformities noted NEUROLOGIC : Coherent, no facial asymmetry, no other gross focality except for intention tremors, gait and stance not assessed Results & Data Vital Signs (Past 12 Hours) Vital Signs Temp Pulse Resp BP BP Pulse Ox 01/18/19 23:35 20 159/97 H 98 01/18/19 22:30 105 H 21 01/18/19 22:09 104 H 26 H 01/18/19 22:03 99 H 25 H 168/109 H 01/18/19 20:39 96 01/18/19 19:56 37.2 C 93 H 18 171/93 H 98 Laboratory Results Laboratory Results WBC 13.24 K/uL (4.8-10.8) H 01/18/19 20:32 RBC 3.97 M/uL (4.7-6.1) L 01/18/19 20:32 Hgb 14.3 g/dL (14.0-18.0) 01/18/19 20:32 Hct 39.7 % (42-52) L 01/18/19 20:32 MCV 100.0 fL (80-100) 01/18/19 20:32 MCH 36.0 pg (25-34) H 01/18/19 20:32 MCHC 36.0 g/dL (32-36) 01/18/19 20:32 RDW Std Deviation 52.8 fL (36.4-46.3) H 01/18/19 20:32 RDW Coeff of Mac 14.5 % (11.5-14.5) 01/18/19 20:32 Plt Count 163 K/uL (130-400) 01/18/19 20:32 MPV 10.1 fL (7.4-10.4) 01/18/19 20:32 Immature Gran % (Auto) 0.6 % 01/18/19 20:32 Neut % (Auto) 63.2 % 01/18/19 20:32 Lymph % (Auto) 25.4 % 01/18/19 20:32 Jerauld % (Auto) 9.9 % 01/18/19 20:32 Eos % (Auto) 0.5 % 01/18/19 20:32 Baso % (Auto) 0.4 % 01/18/19 20:32 Immature Gran # (Auto) 0.08 K/uL (0.00-0.02) H 01/18/19 20:32 Neut # (Auto) 8.37 K/uL (1.4-6.5) H 01/18/19 20:32 Lymph # (Auto) 3.36 K/uL (1.2-3.4) 01/18/19 20:32 Jerauld # (Auto) 1.31 K/uL (0.11-0.59) H 01/18/19 20:32 Eos # (Auto) 0.07 K/uL (0-0.5) 01/18/19 20:32 Baso # (Auto) 0.05 K/uL (0-0.2) 01/18/19 20:32 PT 14.3 Seconds (9.0-12.0) H 01/18/19 20:32 INR 1.4 (0.9-1.1) H 01/18/19 20:32 Sodium 135 mmol/L (136-145) L 01/18/19 20:32 Potassium 3.4 mmol/L (3.5-5.1) L 01/18/19 20:32 Chloride 98 mmol/L (98-107) 01/18/19 20:32 Carbon Dioxide 29 mmol/L (21-32) 01/18/19 20:32 Anion Gap 8.0 (3-11) 01/18/19 20:32 BUN 3 mg/dl (7-18) L 01/18/19 20:32 Creatinine 0.60 mg/dl (0.6-1.4) 01/18/19 20:32 Est Cr Clr Drug Dosing 177.0 ml/min 01/18/19 20:32 Est GFR ( Amer) 138.8 01/18/19 20:32 Est GFR (Non-Af Amer) 119.7 01/18/19 20:32 BUN/Creatinine Ratio 4.4 (10-20) L 01/18/19 20:32 Glucose 93 mg/dl (70-99) 01/18/19 20:32 Lactate 1.6 mmol/L (0.4-2.0) 01/19/19 00:08 Calcium 7.7 mg/dl (8.5-10.1) L 01/18/19 20:32 Phosphorus 2.3 mg/dl (2.5-4.9) L 01/18/19 20:32 Magnesium 1.9 mg/dl (1.8-2.4) 01/18/19 20:32 Total Bilirubin 2.8 mg/dl (0.2-1) H 01/18/19 20:32 Direct Bilirubin 1.2 mg/dl (0-0.2) H 01/18/19 20:32 AST 85 U/L (15-37) H 01/18/19 20:32 ALT 35 U/L (12-78) 01/18/19 20:32 Alkaline Phosphatase 145 U/L (45-117) H 01/18/19 20:32 Troponin I < 0.015 ng/ml (0-0.045) 01/18/19 20:32 Total Protein 7.8 gm/dl (6.4-8.2) 01/18/19 20:32 Albumin 2.8 gm/dl (3.4-5.0) L 01/18/19 20:32 Globulin 5.0 gm/dl (2.5-4.0) H 01/18/19 20:32 Albumin/Globulin Ratio 0.6 (0.9-2) L 01/18/19 20:32 Lipase 273 U/L (73-393) 01/18/19 20:32 TSH 4.620 uIu/ml (0.300-4.500) H 01/18/19 20:32 Free T4 1.21 ng/dl (0.8-1.6) 01/18/19 20:32 Ethyl Alcohol mg/dL 192.4 mg/dl (0-3) H 01/18/19 20:50 Diagnostic Findings Chest x-ray as per my interpretation no congestion EKG as per my interpretation :Rate 85, NSR, normal axis, LVH CT abdomen pelvis initial read cirrhosis with portal hypertension. Collaterals, splenomegaly, and trace fluid. Peritoneal cavity edema. Cholelithiasis. Diverticulosis. Unremarkable appendix. Old granulomatous disease possible sebaceous cyst soft tissue left buttock. Subcutaneous edema. Pelvic nodes Ultrasound venous bilateral lower extremities initial read: No DVT. Soft tissue edema
[2019-01-19] MEDS ORDERED: LISINOPRIL 5 MG TAB PO ONE ×2 (00:49→22:40)
[2019-01-19] MEDS ORDERED: OXYCODONE HCL IR 5 MG TAB (IMMEDIATE RELEASE) PO PRN (00:49)
[2019-01-19] MEDS ORDERED: PROMETHAZINE HCL 12.5 MG in SODIUM CHLORIDE 0.9% 50 ML IV PRN ×2 (00:49→01:42)
[2019-01-19 00:50] LABS: Creatine Kinase 151 U/L (39-308)
[2019-01-19] MEDS ORDERED: NICOTINE 21 MG/24 HR TDSY TD PRN (00:50)
[2019-01-19] MEDS ORDERED: IOVERSOL 100ml IV PRN (00:57)
[2019-01-19] MEDS ORDERED: GABAPENTIN 1200MG ALCOHOL WITHDRAWAL LOAD PO STA (01:42)
[2019-01-19] MEDS ORDERED: ACETAMINOPHEN 325 MG TAB PO PRN (01:42)
[2019-01-19] MEDS ORDERED: POTASSIUM PHOS 3 MMOL/1 ML INFUSION IV STA (01:42)
[2019-01-19] MEDS ORDERED: ATIVAN IV ALCOHOL WITHDRAWL IV SCH (01:42)
[2019-01-19] MEDS ORDERED: NITROGLYCERIN SL 0.4 MG/TAB TAB SL PRN (01:42)
[2019-01-19] MEDS ORDERED: POTASSIUM PHOSPHATE 18 MMOL in SODIUM CHLORIDE 0.9% 500 ML IV ONE (02:15)
[2019-01-19] MEDS ORDERED: NSS + 20MEQ KCL 20 MEQ/1,000 ML BAG IV ONE (02:15)
[2019-01-19] MEDS ORDERED: MAGNESIUM SULFATE / D5W 1 GM/100 ML BAG IV ONE (03:45)
--- NOTE | 2019-01-19 05:15 | Ultrasound Report ---
US venous doppler LE CLINICAL HISTORY: 48 years-old Male presenting with lower extremity swelling and pain. TECHNIQUE: Real-time grayscale and color and spectral Doppler ultrasound imaging of the veins of the bilateral lower extremities was performed. Compression and augmentation were also utilized. COMPARISON: None. FINDINGS: RIGHT: Common femoral vein: Patent. Greater saphenous vein (superficial): Patent. Deep femoral vein: Patent. Femoral vein: Patent. Popliteal vein: Patent. Calf veins: Patent. LEFT: Common femoral vein: Patent. Greater saphenous vein (superficial): Patent. Deep femoral vein: Patent. Femoral vein: Patent. Popliteal vein: Patent. Calf veins: Patent. Other: Left lower leg subcutaneous edema. IMPRESSION: No evidence of deep venous thrombosis. Electronically signed by: Ubaldo Nichole M.D. 01/19/2019 5:13 AM
[2019-01-19] MEDS ORDERED: ACETAMINOPHEN 65 ML IV ONE ×2 (05:30→22:39)
[2019-01-19 05:35] LABS: Basophils # (auto) 0.02 K/uL (0-0.2); Basophils % (auto) 0.2 %; Eosinophils # (auto) 0.02 K/uL (0-0.5); Eosinophils % (auto) 0.2 %; Hematocrit (blood only) 36.7 % (42-52); Hemoglobin 12.7 g/dL (14.0-18.0); Immature Granulocytes # (auto) 0.07 K/uL (0.00-0.02); Immature Granulocytes % (auto) 0.7 %; Lymphocytes # (auto) 1.63 K/uL (1.2-3.4); Lymphocytes % (auto) 17.1 %; Mean Corpuscular Hgb Conc 34.6 g/dL (32-36); Mean Platelet Volume 10.2 fL (7.4-10.4); Monocytes # (auto) 0.96 K/uL (0.11-0.59); Monocytes % (auto) 10.1 %; Neutrophils # (auto) 6.84 K/uL (1.4-6.5); Neutrophils % (auto) 71.7 %; Platelet Count 143 K/uL (130-400); RDW Coefficient of Variation 14.8 % (11.5-14.5); Red Blood Count 3.67 M/uL (4.7-6.1); White Blood Count 9.54 K/uL (4.8-10.8)
[2019-01-19] MEDS ORDERED: DOXYCYCLINE HYCLATE 100 MG in DEXTROSE 5% 100 ML IV ONE (05:45)
[2019-01-19] MEDS: GABAPENTIN 600 MG TAB PO SCH ×3 (05:50→21:38)
[2019-01-19] MEDS: PIPERACILLIN/TAZOBACTAM 3.375 GM in DEXTROSE 5% 100 ML IV SCH ×3 (05:58→22:19)
[2019-01-19 06:00] LABS: Albumin Level 2.3 gm/dl (3.4-5.0); BUN Creatinine Ratio 8.2 (10-20); Calcium 7.3 mg/dl (8.5-10.1); Creatinine Clr Calc Pharmacy 164.6 ml/min; Est GFR (African American) 135.1; Est GFR (Non-African American) 116.6; Potassium 3.4 mmol/L (3.5-5.1)
--- NOTE | 2019-01-19 06:06 | CT Scan Report ---
CT abd pelvis IV con only CLINICAL HISTORY: 48 years-old Male presenting with cirrhosis, generalized abdominal pain. TECHNIQUE: Multidetector CT of the abdomen and pelvis was performed after the administration of intra venous contrast. IV contrast: 94 mL of Optiray 320. One or more dose lowering techniques were used co nsistent with the principles of ALARA (as low as reasonably achievable), including automatic exposure control, mA or kV adjustment to individual patient size, and/or use of iterative reconstruction. COMPARISON: None. CT DOSE (mGy.cm): The estimated cumulative dose is 1721.93 mGy.cm. FINDINGS: Geochemist topogram: Unremarkable. Lung bases: Normal heart size. No pericardial or pleural effusion. No focal infiltrate or nodule at t he lung bases. Liver: Subtle mild micronodular contour of the liver may be present. No focal lesion allowing for the single phase of contrast. Patent hepatic vasculature. Biliary: No intrahepatic or extrahepatic biliary ductal dilatation. Gallbladder contains gallstones. Pancreas: Mild parenchymal atrophy. Spleen: Enlarged measuring 15 cm in maximal sagittal dimension. Adrenal glands: Normal. Kidneys and ureters: Normal. No hydronephrosis. Bladder: Circumferential bladder wall thickening. Pelvic organs: Prostate and seminal vesicles normal. Bowel: Diverticulosis of the mid sigmoid colon without wall thickening or pericolonic inflammatory ch allen. The appendix is normal. No bowel obstruction. Nonspecific mild fluid in the small bowel. Peritoneal cavity: Small retroperitoneal fluid bilaterally though greater on the right. This tracks a long the periduodenal and anterior pararenal spaces. This does not appear to emanate from the pancrea s. No free intraperitoneal gas. Lymph nodes: No enlarged lymph nodes in the abdomen or pelvis. Vasculature: Atherosclerosis of the normal caliber abdominal aorta. IVC patent. Recanalization of the periumbilical vein. Perigastric varices including at the gastroesophageal junction. Few perisplenic varices also noted. Abdominal wall: Periumbilical skin thickening and subcutaneous edema. Mild diffuse body wall edema. Musculoskeletal: Degenerative changes of the spine. Multiple subacute to chronic left lateral rib fra ctures, with persistent fracture planes. IMPRESSION: 1. Nodular contour of the liver could suggest underlying fibrosis/cirrhosis. 2. Portal hypertension is evidence by varices and splenomegaly. 3. Cholelithiasis. No evidence of cholecystitis. 4. Diverticulosis coli. No evidence of diverticulitis. 5. Bladder wall thickening suggest developing chronic bladder outlet obstruction or less likely cyst itis. Correlate with urinalysis. 6. Nonspecific skin thickening and subcutaneous edema in the periumbilical region. Correlate clinica lly to exclude cellulitis. 7. Multiple subacute to chronic left lateral rib fractures. Electronically signed by: Ubaldo Nichole M.D. 01/19/2019 6:05 AM
[2019-01-19 06:11] LABS: Albumin Globulin Ratio 0.5 (0.9-2); Bilirubin,Total 2.7 mg/dl (0.2-1); Globulin 4.4 gm/dl (2.5-4.0); Total Protein 6.7 gm/dl (6.4-8.2)
[2019-01-19] MEDS ORDERED: POTASSIUM CHLORIDE 20 MEQ TABCR PO STA (06:30)
--- NOTE | 2019-01-19 06:31 | Hospitalist Progress Note ---
Date of Service January 19, 2019 Subjective Early a.m. developments : Continues fever despite IV Zosyn administration. Patient noted to be sleepy by RN in a.m. Serum ammonia noted to be 78 AP Sepsis secondary to RLE cellulitis Add Doxycycline to Zosyn for MRSA coverage Hepatic encephalopathy Initiate lactulose GI consult Will relay to AM provider. Results & Data Vital Signs (Past 12 Hours) Vital Signs Temp Pulse Pulse Resp BP BP Pulse Ox 01/19/19 05:19 122 H 01/19/19 04:54 38.8 C H 126 H 18 117/79 91 01/19/19 01:30 38.9 C H 122 H 20 163/96 H 95 01/19/19 01:07 106 H 22 146/93 H 96 01/19/19 00:50 37.7 C H 01/18/19 23:35 20 159/97 H 98 01/18/19 22:30 105 H 21 01/18/19 22:09 104 H 26 H 01/18/19 22:03 99 H 25 H 168/109 H 01/18/19 20:39 96 01/18/19 19:56 37.2 C 93 H 18 171/93 H 98
[2019-01-19] MEDS: LACTULOSE SYRUP 20 GM/30 ML UDC PO SCH ×3 (06:41→20:41)
--- NOTE | 2019-01-19 07:29 | XRay Report ---
XR tibia fibula LT 2V CLINICAL HISTORY: 48 years-old Male presenting with LLE swelling. TECHNIQUE: Frontal and lateral views of the left lower leg were obtained. COMPARISON: None. FINDINGS: Diffuse subcutaneous edema in the lower leg. Knee joint and ankle mortise congruent. No acute fractur e or malalignment. No advanced degenerative change. IMPRESSION: 1. No acute osseous injury. 2. Nonspecific subcutaneous edema diffusely in the lower leg. Electronically signed by: Ubaldo Nichole M.D. 01/19/2019 7:28 AM
[2019-01-19] MEDS: ENOXAPARIN INJ 40 MG/0.4 ML SYR SQ SCH (08:46)
--- NOTE | 2019-01-19 09:18 | History & Physical Report ---
Date of Service January 19, 2019 History of Present Illness Chief Complaint: Alcohol use and ? cirrhosis 48 yo male with significant etoh history, admitted for fever - recent bite infection. Imaging done as part of his admission included CT of abdomen showing cirrhosis. He is denying any overt hematemesis or hematochezia. He is clinically appearing to be recovering from recent etoh use, somewhat disheveld, some bruises noted on lower face. He is alert and oriented to person/place/time when seeing him this afternoon. Seems to have insight into his need to stop drinking alcohol. Labs suggestive of mild alcoholic hepatitis (AST>ALT elevation, TB 2.5, INR 1.4, Cr normal, na normal) Alcohol present on urine tox on admission. CT with IV contrast showing cirrhosis He is on Zosyn Primary Care Provider: Ml Ruffin MD Allergies Allergy/AdvReac Type Severity Reaction Status Date / Time No Known Allergies Allergy Unverified 03/28/17 21:27 Home Medications Home Medications Medication Instructions Recorded Confirmed Type ibuprofen [Advil] 400 - 800 mg PO TID PRN 01/18/19 01/18/19 History Past Med/Surg History Medical History Alcoholism (Acute) Social History Preferred Language: Nam[place]ian Communication Ability: Impaired Communication Ability Comment: somnolant [employer] Attendant Required: No Current Living Situation: Alone Feels Safe at Home: Yes Smoking Status: Current every day smoker Tobacco Type: cigarettes ; Hx Alcohol Use: Yes Alcohol type: beer Review of Systems All systems reviewed & are unremarkable except as noted in HPI & below Physical Exam Physical Exam: Disheveled white male in nad Eyes: PERRL, conjunctivae normal, anicteric sclerae Though slight icterus is present Gastrointestinal (Abdomen): normal bowel sounds, soft, nontender, no hepatosplenomegaly Slight distension Neurologic: PERRL, EOMI, accommodation nl, no face palsy, no dysarthria Results & Data Vital Signs (Past 12 Hours) Vital Signs Temp Pulse Pulse Resp BP BP BP 01/19/19 07:12 36.9 C 108 H 17 113/77 01/19/19 05:19 122 H 01/19/19 04:54 38.8 C H 126 H 18 117/79 01/19/19 01:30 38.9 C H 122 H 20 163/96 H 01/19/19 01:07 106 H 22 146/93 H 01/19/19 00:50 37.7 C H 01/18/19 23:35 20 159/97 H 01/18/19 22:30 105 H 21 01/18/19 22:09 104 H 26 H 01/18/19 22:03 99 H 25 H 168/109 H Pulse Ox 01/19/19 07:12 91 01/19/19 05:19 01/19/19 04:54 91 01/19/19 01:30 95 01/19/19 01:07 96 01/19/19 00:50 01/18/19 23:35 98 01/18/19 22:30 01/18/19 22:09 01/18/19 22:03 Aaron Phillips Tb 2.7, INR 1.4, PT 14.3 Na normal, Cr normal CT a/p reviewed Approximately MELD score is 14 Platelets normal Alcohol + on urine tox Supervising Physician Co-Signing Physician Notes 48 yo male admitted thru the er overnite for fevers, imaging suggestive of cirrhosis, labs showing mild alcoholic hepatitis. With alcohol present on urine tox from admission. Mild alcoholic hepatitis- mark is on 18, no indication for steroids, could consider nac. Would monitor labs for now. Etoh cirrhosis- meld 14, appears well compensated. No overt signs of decompensation though may have mild ascites. No prior egd in the [facility] system- outpatient egd in 4-8 weeks pending sobriety 2 gram sodium diet adherence, alcohol abstinence, would offer alcohol rehab. Would consider lactulose TID if signs of he. He is in the window to monitor for alcohol withdrawal and may exhibit some lability in hemodynamics and also mental status. Outpatient hepatology follow-up with Dr. Fletcher in 4 4 weeks.
[2019-01-19 11:50] LABS: Appearance Urine Clear (Clear); Bilirubin Urine Negative (Negative); Blood Urine Negative (Negative); Color Urine Dark Yellow; Glucose Urine UA Negative (Negative); Ketones Urine Negative (Negative); Leukocyte Esterase Urine Negative (Negative); Nitrite Urine Negative (Negative); Protein Urine Negative (Negative); Specific Gravity Urine 1.036 (1.000-1.030); Urobilinogen Urine Negative (Negative); pH Urine 6.5 (4.5-7.5)
[2019-01-19 12:20] LABS: Amphetamines+Metham, Urine Neg (Neg); Barbiturates, Urine Neg (Neg); Benzodiazepine, Urine Neg (Neg); Cocaine, Urine Neg (Neg); MDMA (Ecstacy), Urine Neg (Neg); Methadone, Urine Neg (Neg); Opiate, Urine Neg (Neg); Phencyclidine, Urine Neg (Neg)
[2019-01-19] MEDS: LORazepam 1 MG/2 ML VIAL IV PRN (14:35)
--- NOTE | 2019-01-19 15:38 | Hospitalist Progress Note ---
Date of Service January 19, 2019 Assessment & Plan (1) Cellulitis: Left lower extremity cellulitis after reported cat bite and injury to his leg with coffee table approximately 3 days ago. Continue current antibiotic therapy pending clinical improvement and culture results. Consider osteo myelitis and MRI but hold for now as he is acutely intoxicated. (2) Sepsis: Secondary to LLE cellulitis , cont plan as above. (3) LFT elevation: Likely secondary to alcohol intoxication. They are trending down. (4) Alcoholism: Heavy alcohol use. After intoxication, patient is at high risk for withdrawal. Continue gabapentin withdrawal protocol which was ordered at admission. Banana bag administered. Electrolytes were replaced. (5) Alcohol intoxication: Continue supportive care. (6) Cirrhosis: New diagnosis, likely secondary to significant alcoholism. Appreciate GI recommendations. Lactulose was started in setting of ammonia elevation. GI consulted. Appreciate recommendations. (7) Smoker: Declines nicotine patch at this time. (8) DVT prophylaxis: Full code Lovenox Dyspnea-continue hospitalization pending infection improvement in antibiotic de- escalation. Will need PT/OT for evaluation Kiley Singh DO [facility] Hospitalist Subjective 48-year-old acutely intoxicated patient who reports a recent cat bite of his left lower extremity as well as walking into a coffee table. No open wound is seen but there is presence of cellulitis on the lower half of the left lower extremity. The patient is disheveled and his lip appears ct, which he reports happened in a shaving accident. He is a smoker and declines a nicotine patch at this time. He denies any shortness of breath. He reports a chronic cough but no acute changes. He denies any illicit drug use. He reports drinking 632 ounce bottles of beer daily for long period of time. Review of Systems Review of Systems: All systems reviewed & are unremarkable except as noted in HPI & below Physical Exam Physical Exam: CONSTITUTIONAL: WNWD, vitals as above, generally appears intoxicated and disheveled. EYES: EOMI bilaterally, PERRL, normal conjunctivae, no scleral icterus ENT: external ear and nose normal, oropharynx clear, dried blood on lip RESPIRATORY: Mild diffuse wheezing throughout all lung massey. No crackles, or rales. Normal respiratory effort. CARDIOVASCULAR: regular rate and rhythm, S1 and 2 heard without murmurs, gallops or rubs, no JVD, no peripheral edema GASTROINTESTINAL: normal bowel sounds, soft, nontender, nondistended MUSCULOSKELETAL: strength 5/5 throughout, head is normocephalic and atraumatic SKIN: warm and dry NEUROLOGIC: Intoxicated, CN 2-12 grossly intact, slurred speech consistent with intoxication. PSYCHIATRIC: alert cooperative and oriented to person and place only. Denies knowing the date.\ Results & Data Vital Signs (Past 12 Hours) Vital Signs Temp Pulse Pulse Resp BP BP Pulse Ox 01/19/19 15:08 37.2 C 109 H 17 122/80 93 01/19/19 14:30 37.5 C 111 H 20 122/80 01/19/19 11:29 37.3 C 110 H 17 128/84 94 01/19/19 10:31 36.9 C 102 H 22 117/77 93 01/19/19 08:00 108 H 01/19/19 07:12 36.9 C 108 H 17 113/77 91 01/19/19 05:19 122 H 01/19/19 04:54 38.8 C H 126 H 18 117/79 91 Laboratory Results Short CBC 01/18/19 01/19/19 Range/Units 20:32 05:14 WBC 13.24 H 9.54 (4.8-10.8) K/uL Hgb 14.3 12.7 L (14.0-18.0) g/dL Hct 39.7 L 36.7 L (42-52) % Plt Count 163 143 (130-400) K/uL BMP 01/18/19 01/19/19 20:32 05:14 Sodium 135 L 137 Potassium 3.4 L 3.4 L Chloride 98 103 Carbon Dioxide 29 28 BUN 3 L 5 L Creatinine 0.60 0.64 Glucose 93 116 H Calcium 7.7 L 7.3 L Cardiac Enzymes 01/18/19 Range/Units 20:32 Total Creatine Kinase 151 (39-308) U/L Troponin I < 0.015 (0-0.045) ng/ml Liver Function 01/18/19 01/19/19 Range/Units 20:32 05:14 Total Bilirubin 2.8 H 2.7 H (0.2-1) mg/dl Direct Bilirubin 1.2 H (0-0.2) mg/dl AST 85 H 65 H (15-37) U/L ALT 35 30 (12-78) U/L Alkaline Phosphatase 145 H 120 H (45-117) U/L Albumin 2.8 L 2.3 L (3.4-5.0) gm/dl Urine 01/19/19 Range/Units 11:38 Urine Color Dark Yellow Urine Appearance Clear (Clear) Urine pH 6.5 (4.5-7.5) Ur Specific [place] 1.036 H (1.000-1.030) Urine Protein Negative (Negative) Urine Glucose (UA) Negative (Negative) Medications Administered Current Inpatient Medications Acetaminophen (Tylenol) 325 mg PO Q6H PRN PRN Reason: Pain or Fever Stop: 02/18/19 01:41 Last Admin: 01/19/19 02:50 Dose: 325 mg Documented by: Doxycycline Hyclate (Vibramycin) 100 mg PO BID [facility] Stop: 01/29/19 20:59 Enoxaparin Sodium (Lovenox) 40 mg SQ QAM [facility] Stop: 02/18/19 08:59 Last Admin: 01/19/19 08:46 Dose: 40 mg Documented by: Folic Acid (Folvite) 1 mg PO QAM [facility] Stop: 02/20/19 08:59 Gabapentin (Neurontin) 600 mg PO Q12H [facility] Stop: 01/21/19 12:01 Gabapentin (Neurontin) 600 mg PO Q24H [facility] Stop: 01/22/19 12:01 Gabapentin (Neurontin) 600 mg PO Q8H [facility] Stop: 01/20/19 12:01 Lorazepam (Ativan) 2 mg in 4 mls @ 4 mls/min IV UD PRN; Protocol PRN Reason: EtOH Withdrawl AWSS Score 8,9 Stop: 02/18/19 01:41 Lorazepam (Ativan) 3 mg in 6 mls @ 4 mls/min IV ONCE PRN; Protocol PRN Reason: EtOH Withdrawl AWSS Score >=10 Stop: 02/18/19 01:41 Promethazine HCl 12.5 mg/ (Sodium Chloride) 50.5 mls @ 202 mls/hr IV Q6H PRN PRN Reason: Nausea And Vomiting Stop: 02/18/19 01:41 Lorazepam (Ativan) 1 mg in 2 mls @ 2 mls/min IV UD PRN; Protocol PRN Reason: EtOH Withdrawl AWSS Score 6,7 Stop: 02/18/19 01:41 Last Admin: 01/19/19 14:35 Dose: 2 mls/min Documented by: Piperacillin Sod/Tazobactam (Sod 3.375 gm/ Dextrose) 115 mls @ 28.75 mls/hr IV Q8H [facility]; Protocol Stop: 01/29/19 05:59 Last Admin: 01/19/19 13:39 Dose: 28.8 mls/hr Documented by: Ioversol (Optiray 320 100ml) 94 ml IV ONCE PRN PRN Reason: Interaction Checking Stop: 01/23/19 00:56 Last Admin: 01/19/19 00:58 Dose: 94 ml Documented by: Lactulose (Chronulac) 20 gm PO TID [facility] Stop: 02/18/19 06:29 Last Admin: 01/19/19 13:43 Dose: 20 gm Documented by: Lisinopril (Zestril) 5 mg PO QAM [facility] Stop: 02/19/19 08:59 Miscellaneous (Remove Nicoderm Patch) 1 ea N/A HS [facility] Stop: 02/18/19 20:59 Miscellaneous (Ativan Iv Alcohol Withdrawl) 1 ea IV UD [facility]IE; Protocol Stop: 02/18/19 01:41 Miscellaneous Information (Consult) 1 ea N/A UD PRN PRN Reason: Consult Stop: 02/18/19 00:35 Multivitamins (Multivitamin Tab) 1 tab PO QAM [facility] Stop: 02/19/19 08:59 Nicotine (Nicoderm Cq) 21 mg TD QAM PRN PRN Reason: smoking urge Stop: 02/18/19 00:49 Nitroglycerin (Nitrostat) 0.4 mg SL UD PRN PRN Reason: Chest Pain Stop: 02/18/19 01:41 Oxycodone HCl (Roxicodone Immediate Rel) 5 mg PO Q4H PRN PRN Reason: Pain Stop: 02/02/19 00:48 Thiamine HCl (Vitamin B-1) 100 mg PO QAM [facility] Stop: 02/20/19 08:59 (1) Cellulitis Laterality: left Site of cellulitis: extremity Site of cellulitis of extremity: lower extremity Qualified Code(s): L03.116 - Cellulitis of left lower limb
[2019-01-19] MEDS ORDERED: PNEUMOCOCCAL ADMINISTRATION CHARGE ONE (18:30)
[2019-01-19] MEDS ORDERED: PNEUMOCOCCAL POLYSACCHARIDES 25 MCG/0.5 ML VIAL/SYR IM ONE (18:30)
[2019-01-19] MEDS: LORazepam 2 MG/4 ML VIAL IV PRN ×2 (20:35→23:38)
[2019-01-19] MEDS: DOXYCYCLINE HYCLATE 100 MG CAP PO SCH (20:41)
[2019-01-19] MEDS ORDERED: cloNIDine HCl 0.1 MG TAB PO ONE (21:47)
[2019-01-19] MEDS ORDERED: METOPROLOL TARTRATE 1 MG/ML VIAL IV STA (22:39)
[2019-01-20] MEDS ORDERED: cloNIDine HCL 0.1 MG/24 HR TRANSDERM SYS TD SCH (01:00)
[2019-01-20] MEDS: GABAPENTIN 600 MG TAB PO SCH ×3 (04:04→23:42)
[2019-01-20] MEDS: LORazepam 2 MG/4 ML VIAL IV PRN ×2 (04:40→19:30)
[2019-01-20] MEDS: PIPERACILLIN/TAZOBACTAM 3.375 GM in DEXTROSE 5% 100 ML IV SCH (04:42)
[2019-01-20 06:52] LABS: Hematocrit (blood only) 35.3 % (42-52); Hemoglobin 11.9 g/dL (14.0-18.0); Mean Corpuscular Hgb Conc 33.7 g/dL (32-36); Mean Corpuscular Volume 101.1 fL (80-100); Mean Platelet Volume 10.1 fL (7.4-10.4); Platelet Count 119 K/uL (130-400); RDW Coefficient of Variation 14.9 % (11.5-14.5); RDW Standard Deviation 54.9 fL (36.4-46.3); Red Blood Count 3.49 M/uL (4.7-6.1)
[2019-01-20] MEDS: DOXYCYCLINE HYCLATE 100 MG CAP PO SCH ×2 (07:14→20:55)
[2019-01-20] MEDS: ENOXAPARIN INJ 40 MG/0.4 ML SYR SQ SCH (07:14)
[2019-01-20] MEDS: LISINOPRIL 5 MG TAB PO SCH (07:14)
[2019-01-20] MEDS: MULTIVITAMIN TAB PO SCH (07:14)
[2019-01-20] MEDS: LACTULOSE SYRUP 20 GM/30 ML UDC PO SCH ×3 (07:15→17:09)
[2019-01-20] MEDS: CHECK CLONIDINE PATCH PLACEMENT SCH ×3 (07:15→23:15)
[2019-01-20 07:26] LABS: Albumin Globulin Ratio 0.6 (0.9-2); Albumin Level 2.2 gm/dl (3.4-5.0); BUN Creatinine Ratio 8.8 (10-20); Bilirubin,Total 2.7 mg/dl (0.2-1); Calcium 7.6 mg/dl (8.5-10.1); Creatinine Clr Calc Pharmacy 174.5 ml/min; Est GFR (African American) 137.8; Est GFR (Non-African American) 118.9; Potassium 3.9 mmol/L (3.5-5.1); Total Protein 6.2 gm/dl (6.4-8.2)
--- NOTE | 2019-01-20 08:54 | Gastroenterology Progress Note ---
Date of Service January 20, 2019 Assessment & Plan (1) Cirrhosis: 48 year old male admitted w/ fever and insect bite - GI asked to evaluate for elevated LFTs, cirrhosis on imaging - ETOH hep superimposed on ETOH cirrhosis - Discriminant less than 32, no indication for steroids, could consider nac - Would monitor labs for now - Meld 14, appears well compensated. - OP EGD - No ETOH - Less than 2G tylenol if using - Less than 2G NA diet - Lactulose titated to bowel movements - Can add Xifaxan 550 BID if unable to tolerate lactulose - ETOH Withdrawal protocol Will sign off. Thank you for allowing us to participate in the care of this patient. Please call with any acute changes, questions or concerns. Please see addendum below with additional recommendation from my supervising physician. Present on Admission?: Yes Supervising Physician Co-Signing Physician Notes Attending attestation I have seen, examined this patient, and agree with the findings and above by our mid-level provider PILI Padgett, with the following additions -Patient admitted with fevers, likely cellulitis at the minimum, in the setting of mild alcoholic hepatitis in the setting of chronic liver disease likely secondary to alcoholism. Still febrile, no other signs of decompensating features in regards to his liver disease, however cellulitis can be a quite ominous infection and cirrhotics. Continue to treat cellulitis per primary team, would consider broadening his antibiotics given his fevers overnight, continue to monitor for signs of alcohol withdrawal. Mental Status without signs of HE. Outpatient hepatology follow-up with Dr. Fletcher in 4 4 weeks. Subjective Pt was seen and evaluated, chart reviewed. Notes he is feeling well. No abd pain Tolerating breakfast No nausea, vomiting Moving bowels, denies black or bloody stools Tells me he has tried to stop ETOH in the past, is agreeable to OP treatment facility consideration Review of Systems Constitutional: no fever and no chills Respiratory: no cough and no dyspnea Cardiovascular: no chest pain, no radiating jaw, neck or arm pain and no syncope Gastrointestinal: no abdominal pain, no belching, no heartburn, no coffee ground emesis, no hematemesis, no blood in stools and no melena Physical Exam Constitutional: + ill appearing (chronically ill appearing); no acute distress Respiratory: normal respiratory effort, lungs clear to auscultation Cardiovascular: Rate/Rhythm: regular rate and regular rhythm Gastrointestinal (Abdomen): normal bowel sounds, soft, nontender, no hepatosplenomegaly Skin: no rashes, warm and dry Results & Data Vital Signs (Past 12 Hours) Vital Signs Temp Pulse Pulse Resp BP BP BP 01/20/19 06:56 36.6 C 82 17 138/89 01/20/19 04:00 36.5 C 95 H 20 135/84 01/19/19 23:37 102 H 169/110 H 01/19/19 23:09 102 H 01/19/19 22:32 37.6 C H 105 H 20 169/110 H 01/19/19 22:08 119 H 184/98 H 01/19/19 21:24 105 H 01/19/19 21:05 37.3 C 104 H 18 144/93 H Pulse Ox 01/20/19 06:56 97 01/20/19 04:00 93 01/19/19 23:37 01/19/19 23:09 01/19/19 22:32 97 01/19/19 22:08 95 01/19/19 21:24 01/19/19 21:05 97 Laboratory Results 01/20/19 01/20/19 01/19/19 Range/Units 06:28 06:28 11:38 WBC 7.20 (4.8-10.8) K/uL RBC 3.49 L (4.7-6.1) M/uL Hgb 11.9 L (14.0-18.0) g/dL Hct 35.3 L (42-52) % MCV 101.1 H (80-100) fL MCH 34.1 H (25-34) pg MCHC 33.7 (32-36) g/dL RDW Std Deviation 54.9 H (36.4-46.3) fL RDW Coeff of Mac 14.9 H (11.5-14.5) % Plt Count 119 L (130-400) K/uL MPV 10.1 (7.4-10.4) fL Sodium 137 (136-145) mmol/L Potassium 3.9 (3.5-5.1) mmol/L Chloride 105 (98-107) mmol/L Carbon Dioxide 28 (21-32) mmol/L Anion Gap 4.0 (3-11) BUN 5 L (7-18) mg/dl Creatinine 0.61 (0.6-1.4) mg/dl Est Cr Clr Drug Dosing 174.5 ml/min Est GFR ( Amer) 137.8 Est GFR (Non-Af Amer) 118.9 BUN/Creatinine Ratio 8.8 L (10-20) Glucose 92 (70-99) mg/dl Calcium 7.6 L (8.5-10.1) mg/dl Total Bilirubin 2.7 H (0.2-1) mg/dl AST 58 H (15-37) U/L ALT 23 (12-78) U/L Alkaline Phosphatase 108 (45-117) U/L Total Protein 6.2 L (6.4-8.2) gm/dl Albumin 2.2 L (3.4-5.0) gm/dl Globulin 4.0 (2.5-4.0) gm/dl Albumin/Globulin Ratio 0.6 L (0.9-2) Urine Color Urine Appearance (Clear) Urine pH (4.5-7.5) Ur Specific [place] (1.000-1.030) Urine Protein (Negative) Urine Glucose (UA) (Negative) Urine Ketones (Negative) Urine Blood (Negative) Urine Nitrite (Negative) Urine Bilirubin (Negative) Urine Urobilinogen (Negative) Ur Leukocyte Esterase (Negative) Urine Opiates Screen Neg (Neg) Ur Methadone, Qual Neg (Neg) Urine Barbiturates Neg (Neg) Ur Phencyclidine (PCP) Neg (Neg) U Amphetamin/Meth Scrn Neg (Neg) MDMA (Ecstasy) Screen Neg (Neg) U Benzodiazepines Scrn Neg (Neg) Ur Cocaine Metabolite Neg (Neg) U Marijuana (THC) Screen Neg (Neg) 01/19/19 Range/Units 11:38 WBC (4.8-10.8) K/uL RBC (4.7-6.1) M/uL Hgb (14.0-18.0) g/dL Hct (42-52) % MCV (80-100) fL MCH (25-34) pg MCHC (32-36) g/dL RDW Std Deviation (36.4-46.3) fL RDW Coeff of Mac (11.5-14.5) % Plt Count (130-400) K/uL MPV (7.4-10.4) fL Sodium (136-145) mmol/L Potassium (3.5-5.1) mmol/L Chloride (98-107) mmol/L Carbon Dioxide (21-32) mmol/L Anion Gap (3-11) BUN (7-18) mg/dl Creatinine (0.6-1.4) mg/dl Est Cr Clr Drug Dosing ml/min Est GFR ( Amer) Est GFR (Non-Af Amer) BUN/Creatinine Ratio (10-20) Glucose (70-99) mg/dl Calcium (8.5-10.1) mg/dl Total Bilirubin (0.2-1) mg/dl AST (15-37) U/L ALT (12-78) U/L Alkaline Phosphatase (45-117) U/L Total Protein (6.4-8.2) gm/dl Albumin (3.4-5.0) gm/dl Globulin (2.5-4.0) gm/dl Albumin/Globulin Ratio (0.9-2) Urine Color Dark Yellow Urine Appearance Clear (Clear) Urine pH 6.5 (4.5-7.5) Ur Specific [place] 1.036 H (1.000-1.030) Urine Protein Negative (Negative) Urine Glucose (UA) Negative (Negative) Urine Ketones Negative (Negative) Urine Blood Negative (Negative) Urine Nitrite Negative (Negative) Urine Bilirubin Negative (Negative) Urine Urobilinogen Negative (Negative) Ur Leukocyte Esterase Negative (Negative) Urine Opiates Screen (Neg) Ur Methadone, Qual (Neg) Urine Barbiturates (Neg) Ur Phencyclidine (PCP) (Neg) U Amphetamin/Meth Scrn (Neg) MDMA (Ecstasy) Screen (Neg) U Benzodiazepines Scrn (Neg) Ur Cocaine Metabolite (Neg) U Marijuana (THC) Screen (Neg)
[2019-01-20] MEDS ORDERED: LISINOPRIL 5 MG TAB PO SCH (09:00)
[2019-01-20] MEDS: PIPERACILLIN/TAZOBACTAM 4.5 GM in DEXTROSE 5% 100 ML IV SCH ×2 (14:05→21:22)
[2019-01-20] MEDS: LORazepam 1 MG/2 ML VIAL IV PRN (15:57)
--- NOTE | 2019-01-20 17:43 | Hospitalist Progress Note ---
Date of Service January 20, 2019 Assessment & Plan (1) Gram-negative bacteremia: Cont Zosyn pending culture results and clinical improvement. Appreciate ID assistance with de-escalation in therapy. (2) Cellulitis: Left lower extremity cellulitis after reported cat bite and injury to his leg with coffee table approximately 3 days ago. Continue current antibiotic therapy pending clinical improvement and culture results. (3) Sepsis: resuscitated. Tachycardia ongoing today is likely related to alcohol withdrawal . (4) Alcohol withdrawal: No delirium, improved mental state from yesterday. Gabapentin on board. Ativan PRN. (5) LFT elevation: Likely secondary to alcohol intoxication. resolved. (6) Alcoholism: Heavy alcohol use. After intoxication, patient is at high risk for withdrawal. Continue gabapentin withdrawal protocol which was ordered at admission. Cont daily thiamine and monitor electrolytes PRN. (7) Alcohol intoxication: resolved. (8) Cirrhosis: New diagnosis, likely secondary to significant alcoholism. Appreciate GI recommendations. Lactulose was started in setting of ammonia elevation, but pt has had multiple BMs today so this was held. (9) Smoker: Declines nicotine patch at this time. (10) DVT prophylaxis: Full code Lovenox Dispo-continue hospitalization pending infection improvement in antibiotic de- escalation. Will need PT/OT for evaluation. Kiley Singh DO [facility] Hospitalist Subjective Pt feeling better, denies fevers or chills today. Tolerating PO, mentating more clearly after clear alcohol intoxication yesterday. Cellulitis is improving. Gram negative bacteria in blood, not yet speciated. ID consult placed. Excessive BMs today with lactulose which was held. Review of Systems Review of Systems: All systems reviewed & are unremarkable except as noted in HPI & below Physical Exam Physical Exam: CONSTITUTIONAL: WNWD, vitals as above, generally appears disheveled but more lucid. EYES: normal conjunctivae, no scleral icterus ENT: MMM RESPIRATORY: Clear lungs to auscultation. Normal respiratory effort. CARDIOVASCULAR: regular rate and rhythm, S1 and 2 heard without murmurs, gallops or rubs, no JVD, no peripheral edema GASTROINTESTINAL: normal bowel sounds, soft, nontender, nondistended MUSCULOSKELETAL: strength 5/5 throughout, head is normocephalic and atraumatic SKIN: warm and dry, LLE with erythema that has improved, closed wounds present on the anterior tibia and the medial left lower leg (catbite), no areas of fluctuance are present. NEUROLOGIC: lazy speech, CN 2-12 grossly intact PSYCHIATRIC: alert cooperative and oriented to person and place only. Declined knowledge of the date. Results & Data Vital Signs (Past 12 Hours) Vital Signs Temp Pulse Pulse Resp BP Pulse Ox 01/20/19 17:03 97 H 01/20/19 15:04 36.6 C 105 H 17 136/91 97 01/20/19 11:22 36.7 C 110 H 17 151/90 H 98 01/20/19 06:56 36.6 C 82 17 138/89 97 Laboratory Results Short CBC 01/20/19 Range/Units 06:28 WBC 7.20 (4.8-10.8) K/uL Hgb 11.9 L (14.0-18.0) g/dL Hct 35.3 L (42-52) % Plt Count 119 L (130-400) K/uL BMP 01/20/19 06:28 Sodium 137 Potassium 3.9 Chloride 105 Carbon Dioxide 28 BUN 5 L Creatinine 0.61 Glucose 92 Calcium 7.6 L Liver Function 01/20/19 Range/Units 06:28 Total Bilirubin 2.7 H (0.2-1) mg/dl AST 58 H (15-37) U/L ALT 23 (12-78) U/L Alkaline Phosphatase 108 (45-117) U/L Albumin 2.2 L (3.4-5.0) gm/dl Medications Administered Current Inpatient Medications Acetaminophen (Tylenol) 325 mg PO Q6H PRN PRN Reason: Pain or Fever Stop: 02/18/19 01:41 Last Admin: 01/19/19 02:50 Dose: 325 mg Documented by: Clonidine HCl ([id number] 0.1mg/24hr) 1 patch TD Tu@0100 [facility] Stop: 02/19/19 00:59 Last Admin: 01/20/19 01:38 Dose: 1 patch Documented by: Doxycycline Hyclate (Vibramycin) 100 mg PO BID [facility] Stop: 01/29/19 20:59 Last Admin: 01/20/19 07:14 Dose: 100 mg Documented by: Enoxaparin Sodium (Lovenox) 40 mg SQ QAM [facility] Stop: 02/18/19 08:59 Last Admin: 01/20/19 07:14 Dose: 40 mg Documented by: Folic Acid (Folvite) 1 mg PO QAM [facility] Stop: 02/20/19 08:59 Gabapentin (Neurontin) 600 mg PO Q12H [facility] Stop: 01/21/19 12:01 Gabapentin (Neurontin) 600 mg PO Q24H [facility] Stop: 01/22/19 12:01 Lorazepam (Ativan) 2 mg in 4 mls @ 4 mls/min IV UD PRN; Protocol PRN Reason: EtOH Withdrawl AWSS Score 8,9 Stop: 02/18/19 01:41 Last Admin: 01/20/19 04:40 Dose: 4 mls/min Documented by: Lorazepam (Ativan) 3 mg in 6 mls @ 4 mls/min IV ONCE PRN; Protocol PRN Reason: EtOH Withdrawl AWSS Score >=10 Stop: 02/18/19 01:41 Promethazine HCl 12.5 mg/ (Sodium Chloride) 50.5 mls @ 202 mls/hr IV Q6H PRN PRN Reason: Nausea And Vomiting Stop: 02/18/19 01:41 Lorazepam (Ativan) 1 mg in 2 mls @ 2 mls/min IV UD PRN; Protocol PRN Reason: EtOH Withdrawl AWSS Score 6,7 Stop: 02/18/19 01:41 Last Admin: 01/20/19 15:57 Dose: 2 mls/min Documented by: Piperacillin Sod/Tazobactam (Sod 4.5 gm/ Dextrose) 120 mls @ 30 mls/hr IV Q8H [facility]; Protocol Stop: 02/02/19 13:59 Last Admin: 01/20/19 14:05 Dose: 30 mls/hr Documented by: Ioversol (Optiray 320 100ml) 94 ml IV ONCE PRN PRN Reason: Interaction Checking Stop: 01/23/19 00:56 Last Admin: 01/19/19 00:58 Dose: 94 ml Documented by: Lactulose (Chronulac) 20 gm PO TID [facility] Stop: 02/18/19 06:29 Last Admin: 01/20/19 17:09 Dose: Not Given Documented by: Lisinopril (Zestril) 10 mg PO QAM [facility] Stop: 02/19/19 08:59 Last Admin: 01/20/19 07:14 Dose: 10 mg Documented by: Miscellaneous (Remove Nicoderm Patch) 1 ea N/A HS [facility] Stop: 02/18/19 20:59 Last Admin: 01/19/19 20:30 Dose: Not Given Documented by: Miscellaneous (Ativan Iv Alcohol Withdrawl) 1 ea IV UD [facility]; Protocol Stop: 02/18/19 01:41 Miscellaneous (Check Clonidine Patch) 1 ea N/A QS [facility] Stop: 02/19/19 07:59 Last Admin: 01/20/19 15:59 Dose: 1 ea Documented by: Miscellaneous (Remove Clonidine Patch) 1 ea N/A Tu@0059 [facility] Stop: 02/26/19 00:58 Miscellaneous Information (Consult) 1 ea N/A UD PRN PRN Reason: Consult Stop: 02/18/19 00:35 Multivitamins ([facility]ivitamin Tab) [facility] [place] Stop: 02/19/19 08:59 Last Admin: 01/20/19 07:14 Dose: 1 tab Documented by: Nicotine (Nicoderm Cq) 21 mg TD QAM PRN PRN Reason: smoking urge Stop: 02/18/19 00:49 Nitroglycerin (Nitrostat) 0.4 mg SL UD PRN PRN Reason: Chest Pain Stop: 02/18/19 01:41 Oxycodone HCl (Roxicodone Immediate Rel) 5 mg PO Q4H PRN PRN Reason: Pain Stop: 02/02/19 00:48 Thiamine HCl (Vitamin B-1) 100 mg PO QAM [facility] Stop: 02/20/19 08:59 (1) Cellulitis Laterality: left Site of cellulitis: extremity Site of cellulitis of extremity: lower extremity Qualified Code(s): L03.116 - Cellulitis of left lower limb
[2019-01-20] MEDS: LORazepam 3 MG/6 ML VIAL IV PRN (23:14)
[2019-01-21] MEDS: LORazepam 2 MG/4 ML VIAL IV PRN ×3 (01:12→11:54)
[2019-01-21] MEDS: LORazepam 3 MG/6 ML VIAL IV PRN ×2 (02:14→04:58)
[2019-01-21] MEDS: PIPERACILLIN/TAZOBACTAM 4.5 GM in DEXTROSE 5% 100 ML IV SCH ×3 (05:41→21:42)
[2019-01-21 07:54] LABS: Basophils # (auto) 0.02 K/uL (0-0.2); Basophils % (auto) 0.4 %; Hematocrit (blood only) 34.9 % (42-52); Immature Granulocytes # (auto) 0.04 K/uL (0.00-0.02); Immature Granulocytes % (auto) 0.8 %; Lymphocytes # (auto) 1.69 K/uL (1.2-3.4); Lymphocytes % (auto) 34.4 %; Mean Corpuscular Hgb Conc 34.4 g/dL (32-36); Mean Corpuscular Volume 101.2 fL (80-100); Mean Platelet Volume 9.9 fL (7.4-10.4); Monocytes # (auto) 0.65 K/uL (0.11-0.59); Monocytes % (auto) 13.2 %; Neutrophils # (auto) 2.41 K/uL (1.4-6.5); Neutrophils % (auto) 49.2 %; Platelet Count 132 K/uL (130-400); RDW Coefficient of Variation 14.6 % (11.5-14.5); RDW Standard Deviation 53.6 fL (36.4-46.3); Red Blood Count 3.45 M/uL (4.7-6.1); White Blood Count 4.91 K/uL (4.8-10.8)
[2019-01-21] MEDS: THIAMINE HCL 100 MG TAB PO SCH (08:14)
[2019-01-21] MEDS: ENOXAPARIN INJ 40 MG/0.4 ML SYR SQ SCH (08:14)
[2019-01-21] MEDS: DOXYCYCLINE HYCLATE 100 MG CAP PO SCH ×2 (08:15→20:29)
[2019-01-21] MEDS: FOLIC ACID 1 MG TAB PO SCH (08:15)
[2019-01-21] MEDS: LISINOPRIL 5 MG TAB PO SCH (08:15)
[2019-01-21] MEDS: MULTIVITAMIN TAB PO SCH (08:15)
[2019-01-21] MEDS: CHECK CLONIDINE PATCH PLACEMENT SCH ×2 (08:15→15:28)
--- NOTE | 2019-01-21 08:20 | Gastroenterology Progress Note ---
Date of Service January 21, 2019 Assessment & Plan (1) Cirrhosis: 48 year old male admitted w/ ETOH hepatitis superimposed on cirrhosis admitted w/ fever and lower extremity cellutitis on Zosyn & Doxycycline. He acutely became agitated last evening requiring a 1-1 w/ continued confusion and disorientation this AM. He is awake, oriented to person but not place/time w/o asterixis on examination - Confusion - Positive blood cultures, gram negative rods - Diagnostic paracentesis to rule out SBP if able - Consider head CT - Consider chest XR - Consider urinalysis - Would recommend to start Lactulose titrated to BM - Can also add Xifaxan 550 BID given his ability to tolerate lactulose - ETOH hep superimposed on ETOH cirrhosis - Discriminant less than 32, no indication for steroids, not a candidate for steroids given ongoing infection - Would monitor labs for now - Meld 14, appears well compensated - Cellulitis - Has remained afebrile for > 24 hours - Appreciate primary team management of ABX therapy - OP EGD - No ETOH - Less than 2G tylenol if using - Less than 2G NA diet - ETOH Withdrawal protocol Will follow. Thank you for allowing us to participate in the care of this patient. Please call with any acute changes, questions or concerns. Please see addendum below with additional recommendation from my supervising physician. Supervising Physician Co-Signing Physician Notes Attending attestation I have seen, examined this patient, and agree with the findings and above by our mid-level provider PILI Padgett, with the following additions. -Gram Negative bacteremia without clear source, no signs of biliary obstruction or abdominal pain, no ascites on US. -Still tremulous and concern for Etoh W/D, no asterixis today and behavior not consistent with HE. -Albumin today as if SBP as well as two day -Follow Cxs -Infectious treatment per hospitalist as well as ID -Encourage Nutrition -Suggest IV Vitamin K x 1 dose -Repeat Blood Cxs to ensure sterility -Supportive care Subjective Pt was see latoya evaluated, chart reviewed. Became disoriented and agitated last evening Now 1-1 Per staff, pt was up all night now finally sleeping Does awaken to name but is not oriented to person, place, time but does note he is hungry No asterixis Denies abd pain Otherwise unable to perform ROS C.diff negative Blood cx gram negative MELD: AM labs pending Discriminant: AM labs pending Review of Systems Review of Systems: Unobtainable due to cognitive status Physical Exam Constitutional: + ill appearing (chronic) and + obese; no acute distress Neck: trachea midline Respiratory: normal respiratory effort Cardiovascular: Rate/Rhythm: regular rate and regular rhythm Gastrointestinal (Abdomen): Percussion/Palpation: abdomen soft; abdomen nontender, no guarding and abdomen not rigid Skin: no rashes, warm and dry Neurologic: Motor/Sensory: no tremor and no asterixis Cranial Nerves: PERRL Results & Data Vital Signs (Past 12 Hours) Vital Signs Temp Pulse Pulse Resp BP BP Pulse Ox 01/21/19 07:16 85 01/21/19 07:11 36.5 C 89 20 156/104 H 94 01/21/19 03:22 36.8 C 100 H 20 148/90 H 93 01/20/19 22:33 36.6 C 98 H 19 188/114 H 98 01/20/19 21:33 36.8 C 98 H 22 169/113 H
[2019-01-21 08:32] LABS: BUN Creatinine Ratio 9.3 (10-20); Calcium 7.8 mg/dl (8.5-10.1); Creatinine Clr Calc Pharmacy 177.5 ml/min; Est GFR (African American) 139.7; Est GFR (Non-African American) 120.6; Potassium 3.4 mmol/L (3.5-5.1)
[2019-01-21 09:00] LABS: INR 1.6 (0.9-1.1); Prothrombin Time 16.3 Seconds (9.0-12.0)
--- NOTE | 2019-01-21 10:15 | Ultrasound Report ---
US abdomen limited CLINICAL HISTORY: assess for ascites. Abdominal pain. COMPARISON STUDY: Abdomen and pelvis CT 01/19/2019. FINDINGS: Transabdominal scanning of the abdomen and pelvis is performed. No ascites identified. The liver is mildly enlarged measuring 19 cm and demonstrates a slightly nodular contour suggestive of mi ld cirrhosis. The spleen is also enlarged measuring 17 cm in length. IMPRESSION: 1. No ascites. 2. Hepatosplenomegaly, unchanged. 3. Cirrhotic appearing liver. Electronically signed by: Rey Wang M.D. 01/21/2019 10:14 AM
--- NOTE | 2019-01-21 11:43 | Hospitalist Progress Note ---
Date of Service January 21, 2019 Assessment & Plan (1) Gram-negative bacteremia: -empirically on Zosyn -urine analysis is negative -discussed with Dr. Rosado in regards to gram negative bacteremia but at this time, will defer infectious consultation until speciation and sensitivities return -appears to be appropriately covered with Zosyn at this time, will also continue BID oral Doxycycline for now (2) Cellulitis: -Left lower extremity cellulitis after reported cat bite and injury to his leg with coffee table approximately 3 days ago prior to hospitalization -left leg chew area may have some fluid collection under the skin, will ask for orthopedic consultation to evaluate if any need for incision and drainage -continue empiric Zosyn and follow blood cultures, will also continue BID oral Doxycycline for now (3) Sepsis: -bacteremia from gram negative bacilli -is hemodynamically stable -tachycardia appears to be resolving; continue telemetry monitoring and alcohol withdrawal protocol (4) Alcohol withdrawal: -tachycardia appears to be resolving; continue telemetry monitoring and alcohol withdrawal protocol - gabapentin, prn ativan -continue to monitor mental status; continue 1 to1 observation for now -Continue daily thiamine Altered Mental Status is multifactorial - secondary to sepsis and Hyperammonemia and alcoholism (5) LFT elevation: -transaminitis from alcohol use -transaminitis have improved since being off alcohol while in the hospital (6) Alcoholism: Heavy alcohol use as per history -tachycardia appears to be resolving; continue telemetry monitoring and alcohol withdrawal protocol - gabapentin, prn ativan -continue to monitor mental status; continue 1 to1 observation for now -Continue daily thiamine (7) Alcohol intoxication: resolved. (8) Cirrhosis: -New diagnosis likely due to history of alcohol use: alcoholic cirrhosis -Hepatosplenomegaly; Cirrhotic appearing liver on abdominal imaging -Hyperammonemia : admission serum ammonia level as 78 -was evaluated by Gastroenterology service -at this time, while awaiting speciation of gram negative rods and on IV Zosyn, hospitalist service would not do paracentesis at this time and also because on abdomen ultrasound on 01/21/19 there are no ascites -Lactulose was started in setting of ammonia elevation, resume lactulose, add Xifaxan 550 mg BID -patient may benefit with outpatient EGD, will need to be counseled on avoiding alcohol, and to avoid taking more than 2 grams of acetaminophen a day, and to avoid more than 2 grams of sodium in daily diet (9) Smoker: -had declined nicotine patch at this time. (10) DVT prophylaxis: -Lovenox PT/OT evaluations Full Code Subjective Patient speaks slowly. awake and alert. cooperative. 1 to 1 at bedside. denies acute pain. seen patient with wound care nurse. left leg chew area may have some fluid collection under the skin. patient reports some tenderness around the area. denies chest pain or shortness of breath. no tremors. Physical Exam Constitutional: comfortable Eyes: EOM intact bilaterally ENMT: external ear and nose normal, oropharynx normal Neck: normal visual inspection Respiratory: normal respiratory effort, lungs clear to auscultation Cardiovascular: RRR, no murmur, no edema Gastrointestinal (Abdomen): Percussion/Palpation: abdomen soft Musculoskeletal: Head/Neck/Chest: normocephalic and head atraumatic left leg chew area may have some fluid collection under the skin Neurologic: CN's II-XI intact bilaterally Psychiatric: Orientation: cooperative Results & Data Vital Signs (Past 12 Hours) Vital Signs Temp Pulse Pulse Resp BP BP Pulse Ox 01/21/19 11:02 36.6 C 82 20 142/92 H 96 01/21/19 07:16 85 01/21/19 07:11 36.5 C 89 20 156/104 H 94 01/21/19 03:22 36.8 C 100 H 20 148/90 H 93 (1) Cellulitis Laterality: left Site of cellulitis: extremity Site of cellulitis of extremity: lower extremity Qualified Code(s): L03.116 - Cellulitis of left lower limb
[2019-01-21] MEDS: GABAPENTIN 600 MG TAB PO SCH (11:48)
[2019-01-21 12:47] LABS: Magnesium 1.8 mg/dl (1.8-2.4); Phosphorus 2.7 mg/dl (2.5-4.9)
[2019-01-21] MEDS: ALBUMIN 25% 50 ML IV SCH ×6 (14:02→18:35)
[2019-01-21] MEDS: LACTULOSE SYRUP 20 GM/30 ML UDC PO SCH ×2 (14:08→20:29)
--- NOTE | 2019-01-21 17:12 | Consultation Report ---
DATE OF CONSULTATION: 01/21/2019 HISTORY OF PRESENT ILLNESS: The patient is a 48-year-old white male who presents after having last week been bitten by his own cat on the anterior tibia midshaft left leg. He presents, he had cellulitis, and was placed on intravenous antibiotics over the weekend. In the middle, we were consulted to evaluate his current resolving cellulitis and a 5 mm open area of the bite with no fluctuant or abscessed tissue. No evidence of any type of compartment syndrome is noted. His relates that his cellulitis has been resolving on intravenous antibiotics and at this point, nothing is surgical here. We will continue to follow with you should this change. Cellulitis status post cat bite on appropriate IV antibiotics. We will follow as needed.
[2019-01-21] MEDS ORDERED: cloNIDine HCl 0.1 MG TAB PO ONE (21:44)
[2019-01-22] MEDS: CHECK CLONIDINE PATCH PLACEMENT SCH ×4 (00:10→23:05)
[2019-01-22] MEDS: PIPERACILLIN/TAZOBACTAM 4.5 GM in DEXTROSE 5% 100 ML IV SCH ×3 (06:33→22:33)
[2019-01-22] MEDS: THIAMINE HCL 100 MG TAB PO SCH (07:40)
[2019-01-22] MEDS: LISINOPRIL 5 MG TAB PO SCH (07:40)
[2019-01-22] MEDS: FOLIC ACID 1 MG TAB PO SCH (07:41)
[2019-01-22] MEDS: DOXYCYCLINE HYCLATE 100 MG CAP PO SCH (07:41)
[2019-01-22] MEDS: MULTIVITAMIN TAB PO SCH (07:42)
[2019-01-22] MEDS: ENOXAPARIN INJ 40 MG/0.4 ML SYR SQ SCH (07:42)
[2019-01-22] MEDS: LACTULOSE SYRUP 20 GM/30 ML UDC PO SCH ×3 (07:42→20:11)
[2019-01-22 08:44] LABS: Basophils # (auto) 0.02 K/uL (0-0.2); Basophils % (auto) 0.4 %; Eosinophils # (auto) 0.13 K/uL (0-0.5); Eosinophils % (auto) 2.4 %; Hematocrit (blood only) 34.9 % (42-52); Hemoglobin 11.9 g/dL (14.0-18.0); Immature Granulocytes # (auto) 0.03 K/uL (0.00-0.02); Immature Granulocytes % (auto) 0.5 %; Lymphocytes # (auto) 1.86 K/uL (1.2-3.4); Lymphocytes % (auto) 33.8 %; Mean Corpuscular Hgb Conc 34.1 g/dL (32-36); Mean Corpuscular Volume 101.5 fL (80-100); Mean Platelet Volume 10.1 fL (7.4-10.4); Monocytes # (auto) 0.56 K/uL (0.11-0.59); Monocytes % (auto) 10.2 %; Neutrophils # (auto) 2.91 K/uL (1.4-6.5); Neutrophils % (auto) 52.7 %; Platelet Count 148 K/uL (130-400); RDW Coefficient of Variation 14.8 % (11.5-14.5); RDW Standard Deviation 54.8 fL (36.4-46.3); Red Blood Count 3.44 M/uL (4.7-6.1); White Blood Count 5.51 K/uL (4.8-10.8)
--- NOTE | 2019-01-22 08:50 | Gastroenterology Progress Note ---
Date of Service January 22, 2019 Assessment & Plan (1) Gram-negative bacteremia: 48 year old male admitted w/ ETOH hepatitis superimposed on cirrhosis admitted w/ fever and lower extremity cellutitis on Zosyn & Doxycycline. He acutely became agitated last evening requiring a 1-1 w/ continued confusion and disorientation this AM. He is awake, oriented x 4 w/o asterixis or complaints on examination - Confusion - Positive blood cultures, gram negative rods - No fluid for diagnostic paracentesis - Would recommend to start Lactulose titrated to BM - Can also add Xifaxan 550 BID given his ability to tolerate lactulose - ETOH hep superimposed on ETOH cirrhosis - Discriminant less than 32, no indication for steroids, not a candidate for steroids given ongoing infection - Would monitor labs for now - Meld 14, appears well compensated - Cellulitis - Has remained afebrile for > 24 hours - Appreciate primary team management of ABX therapy - OP EGD - No ETOH - Less than 2G tylenol if using - Less than 2G NA diet - ETOH Withdrawal protocol Will sign off. Thank you for allowing us to participate in the care of this patient. Please call with any acute changes, questions or concerns. Please see addendum below with additional recommendation from my supervising physician. Present on Admission?: Yes (2) Cirrhosis: Present on Admission?: Yes (3) Cellulitis: Present on Admission?: Yes Supervising Physician Co-Signing Physician Notes Attending attestation I have seen, examined this patient, and agree with the findings and above by our mid-level provider PILI Padgett, with the following additions. -Overall appears much better, still needs abx, await sensitivities. -Albumin tomorrow -Strict EtoH cessation -Hepatology outpt f/u Subjective Pt was seen and evaluated, chart reviewed. He is awake, alert and oriented answering questions appropriately. Tolerating diet without complaints No abdominal pain, no nausea, vomiting Denies any black or bloody stools Leg pain is slightly improving, wants to try ambulating today No fever, chills, CP, SOB Review of Systems Constitutional: no fever, no chills and no fatigue Respiratory: no cough, no dyspnea and no wheezing Cardiovascular: no chest pain, no radiating jaw, neck or arm pain and no dy spnea on exertion Gastrointestinal: no abdominal pain, no early satiety, no vomiting, no coffee ground emesis, no hematemesis, no blood in stools and no melena Physical Exam Constitutional: + ill appearing (chronically) Neck: trachea midline Respiratory: normal respiratory effort, lungs clear to auscultation Cardiovascular: Rate/Rhythm: regular rate and regular rhythm Gastrointestinal (Abdomen): normal bowel sounds, soft, nontender, no hepatosplenomegaly Skin: no rashes, warm and dry Results & Data Vital Signs (Past 12 Hours) Vital Signs Temp Pulse Pulse Resp BP Pulse Ox 01/22/19 07:06 37.1 C 65 16 132/82 96 01/22/19 04:55 36.9 C 94 H 22 169/101 H 93 01/22/19 01:45 96 H 01/22/19 00:15 37.1 C 94 H 16 144/78 H 98 01/21/19 21:20 36.8 C 85 20 163/107 H 96 Laboratory Results 01/22/19 01/22/19 01/22/19 Range/Units 08:33 08:33 08:33 WBC 5.51 (4.8-10.8) K/uL RBC 3.44 L (4.7-6.1) M/uL Hgb 11.9 L (14.0-18.0) g/dL Hct 34.9 L (42-52) % MCV 101.5 H (80-100) fL MCH 34.6 H (25-34) pg MCHC 34.1 (32-36) g/dL RDW Std Deviation 54.8 H (36.4-46.3) fL RDW Coeff of Mac 14.8 H (11.5-14.5) % Plt Count 148 (130-400) K/uL MPV 10.1 (7.4-10.4) fL Immature Gran % (Auto) 0.5 % Neut % (Auto) 52.7 % Lymph % (Auto) 33.8 % [place] % (Auto) 10.2 % Eos % (Auto) 2.4 % Baso % (Auto) 0.4 % Immature Gran # (Auto) 0.03 H (0.00-0.02) K/uL Neut # (Auto) 2.91 (1.4-6.5) K/uL Lymph # (Auto) 1.86 (1.2-3.4) K/uL [place] # (Auto) 0.56 (0.11-0.59) K/uL Eos # (Auto) 0.13 (0-0.5) K/uL Baso # (Auto) 0.02 (0-0.2) K/uL PT (9.0-12.0) Seconds INR (0.9-1.1) Sodium Pending Potassium Pending Chloride Pending Carbon Dioxide Pending Anion Gap Pending BUN Pending Creatinine Pending Est Cr Clr Drug Dosing Pending Est GFR ( Amer) Pending Est GFR (Non-Af Amer) Pending BUN/Creatinine Ratio Pending Glucose Pending Calcium Pending Phosphorus (2.5-4.9) mg/dl Magnesium (1.8-2.4) mg/dl Total Bilirubin Pending AST Pending ALT Pending Alkaline Phosphatase Pending Ammonia Pending Total Protein Pending Albumin Pending Globulin Pending Albumin/Globulin Ratio Pending 01/21/19 01/21/19 Range/Units 08:30 07:40 WBC (4.8-10.8) K/uL RBC (4.7-6.1) M/uL Hgb (14.0-18.0) g/dL Hct (42-52) % MCV (80-100) fL MCH (25-34) pg MCHC (32-36) g/dL RDW Std Deviation (36.4-46.3) fL RDW Coeff of Mac (11.5-14.5) % Plt Count (130-400) K/uL MPV (7.4-10.4) fL Immature Gran % (Auto) % Neut % (Auto) % Lymph % (Auto) % [place] % (Auto) % Eos % (Auto) % Baso % (Auto) % Immature Gran # (Auto) (0.00-0.02) K/uL Neut # (Auto) (1.4-6.5) K/uL Lymph # (Auto) (1.2-3.4) K/uL [place] # (Auto) (0.11-0.59) K/uL Eos # (Auto) (0-0.5) K/uL Baso # (Auto) (0-0.2) K/uL PT 16.3 H (9.0-12.0) Seconds INR 1.6 H (0.9-1.1) Sodium Potassium Chloride Carbon Dioxide Anion Gap BUN Creatinine Est Cr Clr Drug Dosing Est GFR ( Amer) Est GFR (Non-Af Amer) BUN/Creatinine Ratio Glucose Calcium Phosphorus 2.7 (2.5-4.9) mg/dl Magnesium 1.8 (1.8-2.4) mg/dl Total Bilirubin AST ALT Alkaline Phosphatase Ammonia Total Protein Albumin Globulin Albumin/Globulin Ratio (1) Cellulitis Laterality: left Site of cellulitis: extremity Site of cellulitis of extremity: lower extremity Qualified Code(s): L03.116 - Cellulitis of left lower limb
[2019-01-22 09:19] LABS: Albumin Level 2.9 gm/dl (3.4-5.0); BUN Creatinine Ratio 6.4 (10-20); Calcium 8.3 mg/dl (8.5-10.1); Creatinine Clr Calc Pharmacy 139.6 ml/min; Est GFR (African American) 126.6; Est GFR (Non-African American) 109.2; Potassium 3.2 mmol/L (3.5-5.1)
[2019-01-22 09:22] LABS: Albumin Globulin Ratio 0.7 (0.9-2); Bilirubin,Total 1.6 mg/dl (0.2-1); Total Protein 6.9 gm/dl (6.4-8.2)
[2019-01-22] MEDS ORDERED: GABAPENTIN 600 MG TAB PO SCH (12:00)
[2019-01-22] MEDS ORDERED: POTASSIUM CHLORIDE 20 MEQ TABCR PO STA (12:27)
[2019-01-22] MEDS: AMLODIPINE BESYLATE 5 MG TAB PO SCH (13:21)
[2019-01-22] MEDS: POTASSIUM CHLORIDE / WTR 10 MEQ/100 ML PLCT IV SCH ×2 (13:22→14:26)
--- NOTE | 2019-01-22 14:11 | Infectious Disease Consult ---
Date of Consultation January 22, 2019 Assessment & Plan (1) Gram negative sepsis: continue zosyn, discussed with primary, ok to stop doxy. await ID, repeat cultures pending. potential source cellulitis/cat bite vs spb, but no ascites noted on ultrasound. would confrim tetanus status when able and booster if needed. will follow. (2) Alcohol withdrawal: (3) Cellulitis: (4) Cirrhosis: History of Present Illness Attending Physician: Zen Linares MD pt admitted with lle pain and etoh intoxication. He was started on abx - currenlty on zosyn and po doxy, tolerating well. cellulitis resolved. blood cultures done in ER 01/18 - growing gnr (became + 01/21) and repeat cultures on 01/19 also + gnr and bacillus species. he was bit by household cat some time before ER presentation, per H&P had increased swelling and pain. unclear if f/c at home but had temp 38.9 on admission, now afebrile. Had change in mental status overnight/combative behavior, is lethargic on my exam and unable to provide any significant ROS. wbc initially 13, now 9. Ammonia level was 78, improved to 35. [address]toh [address]d did reveal cirrhosis and rib fractures. he denies f/c but answers few questions. per nursing at bedside he is more alert today, undergoing rx for withdrawal by pcp. no cp. Allergies Allergy/AdvReac Type Severity Reaction Status Date / Time No Known Allergies Allergy Unverified 03/28/17 21:27 Home Medications Home Medications Medication Instructions Recorded Confirmed Type ibuprofen [Advil] 400 - 800 mg PO TID PRN 01/18/19 01/18/19 History Patient History Medical History Alcoholism (Acute) Social History Preferred Language: Estonian Communication Ability: Effective Communication Ability Comment: somnolant Lens Assorter Required: No marital status: Current Living Situation: Alone Feels Safe at Home: Yes Smoking Status: Current every day smoker Tobacco Type: cigarettes ; Hx Alcohol Use: Yes Alcohol type: beer Review of Systems Review of Systems: Unobtainable due to cognitive status Physical Exam Constitutional: well developed and + lethargic Eyes: PERRL, conjunctivae normal, anicteric sclerae ENMT: external ear and nose normal, oropharynx normal Neck: normal visual inspection Respiratory: normal respiratory effort, lungs clear to auscultation Auscultation: + diminished lung sounds Cardiovascular: RRR, no murmur, no edema Gastrointestinal (Abdomen): Inspection/Auscultation: abdomen normal to inspection and + abdomen distended Percussion/Palpation: abdomen soft; abdomen nontender, no guarding and abdomen not rigid Musculoskeletal: Head/Neck/Chest: + head abnormal to inspection, normocephalic and head atraumatic moving all extremities but does not follow commands. Skin: + crusts, + dry skin and + excoriations lle without erythema, wamth, edema, tenderness Psychiatric: Orientation: cooperative Apperance: + disheveled Eye Contact: + poor eye contact Motor Behavior: + unsteady gait or station and n tremor Results & Data Vital Signs (Past 12 Hours) Vital Signs Temp Pulse Pulse Resp BP Pulse Ox 01/22/19 12:28 83 01/22/19 11:19 36.9 C 61 16 166/87 H 96 01/22/19 07:06 37.1 C 65 16 132/82 96 01/22/19 04:55 36.9 C 94 H 22 169/101 H 93 Laboratory Results Microbiology 01/19/19 00:04 Blood Aerobic Blood Culture - Preliminary Bacillus 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 01/19/19 00:04 Blood Anaerobic Blood Culture - Preliminary Bacillus 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 Gram negative bacilli 01/18/19 23:44 Blood Aerobic Blood Culture - Preliminary Gram negative bacilli 01/18/19 23:44 Blood Anaerobic Blood Culture - Preliminary Gram negative bacilli PG Care Time/CCT Total # of Minutes Spent Total Time Spent with Patient: Total time spent is greater than 50% in coordination of care (as documented) at patient's floor/unit and/or counseling patient: (1) Cellulitis Laterality: left Site of cellulitis: extremity Site of cellulitis of extremity: lower extremity Qualified Code(s): L03.116 - Cellulitis of left lower limb
--- NOTE | 2019-01-22 16:02 | Hospitalist Progress Note ---
Date of Service January 22, 2019 Assessment & Plan (1) Gram-negative bacteremia: -gram negative bacteremia from admission 01/19/19 blood cultures -was empirically started on Zosyn and BID oral Doxycycline -repeat blood cultures sent on 01/22/19, Infectious disease consulted, continue IV Zosyn for now, no need for Doxycycline at this time as per Infectious Disease consult on 01/22/19 (2) Cellulitis: -Left lower extremity cellulitis after reported cat bite and injury to his leg with coffee table approximately 3 days ago prior to hospitalization -no orthopedic intervention needed at time as per orthopedic evaluation on 01/21/19 -patient does not recall when last time he had tetanus shot; he agrees to get TDAP inpatient and this is ordered on 01/22/19 -antibiotic management as above (3) Sepsis: -bacteremia from gram negative bacilli -is hemodynamically stable -tachycardia appears to be resolving; continue telemetry monitoring and alcohol withdrawal protocol -antibiotic management as above (4) Alcohol withdrawal: Heavy alcohol use as per history -tachycardia appears to be generally resolved; continue for now telemetry monitoring and alcohol withdrawal protocol - gabapentin, prn ativan -now off 1 to 1 monitoring -Continue daily thiamine Altered Mental Status is multifactorial - secondary to sepsis and Hyperammonemia and alcoholism -currently very improved as of 01/22/19 (5) LFT elevation: -transaminitis from alcohol use -transaminitis have improved since being off alcohol while in the hospital Hypoalbuminemia -likely from poor nutrition and alcohol use -will obtain stamper blocker consult -start BOOST supplements with meals -patient did get IV albumin from gastroenterology service during this hospital stay but no plans for paracentesis at this time given lack of ascites fluid Hypokalemia -serum potassium 3.2 on 01/22/19; give oral and IV potassium supplements. will trend serum magnesium levels (6) Alcoholism: Heavy alcohol use as per history -tachycardia appears to be generally resolved; continue for now telemetry monitoring and alcohol withdrawal protocol - gabapentin, prn ativan -now off 1 to 1 monitoring -Continue daily thiamine (7) Alcohol intoxication: resolved. (8) Cirrhosis: -New diagnosis likely due to history of alcohol use: alcoholic cirrhosis -Hepatosplenomegaly; Cirrhotic appearing liver on abdominal imaging -Hyperammonemia : admission serum ammonia level as 78, now downtrended to 35.8 as of 01/22/19 -was evaluated by Gastroenterology service -Lactulose was started in setting of ammonia elevation, continue lactulose, add Xifaxan 550 mg BID -abdomen ultrasound on 01/21/19 there are no ascites, abdominal exam does not suggest a spontaneous bacterial peritonitis -patient may benefit with outpatient EGD, will need to be counseled on avoiding alcohol, and to avoid taking more than 2 grams of acetaminophen a day, and to avoid more than 2 grams of sodium in daily diet (9) Smoker: -declining nicotine patch (10) DVT prophylaxis: -Lovenox PT/OT evaluation at this time suggests that patient has unsteady gait and may be fall risk, discussed with patient about consider inpatient physical therapy center after hospital stay but he does not want to go to inpatient physical therapy center at this time Full Code [phone] Mother [phone] Subjective patient mental status is much improved today. He is able to sit up on the bed. He is talking more and cooperative. Discussed plans of health care with him and his family members. Patient denies acute pain. no shortness of breath. no abdomen pain. no vomiting Physical Exam Constitutional: comfortable Eyes: EOM intact bilaterally ENMT: external ear and nose normal, oropharynx normal Neck: normal visual inspection Respiratory: normal respiratory effort, lungs clear to auscultation Cardiovascular: RRR, no murmur, no edema Gastrointestinal (Abdomen): Percussion/Palpation: abdomen soft Musculoskeletal: Head/Neck/Chest: normocephalic and head atraumatic Neurologic: CN's II-XI intact bilaterally Psychiatric: Orientation: cooperative Results & Data Vital Signs (Past 12 Hours) Vital Signs Temp Pulse Pulse Resp BP Pulse Ox 01/22/19 15:29 36.8 C 72 20 154/101 H 96 01/22/19 12:28 83 01/22/19 11:19 36.9 C 61 16 166/87 H 96 01/22/19 07:06 37.1 C 65 16 132/82 96 01/22/19 04:55 36.9 C 94 H 22 169/101 H 93 (1) Cellulitis Laterality: left Site of cellulitis: extremity Site of cellulitis of extremity: lower extremity Qualified Code(s): L03.116 - Cellulitis of left lower limb
[2019-01-22] MEDS ORDERED: DIPHTHERIA/TETANUS/PERTUSSIS 0.5 ML SYR/VIAL IM ONE (21:00)
[2019-01-22] MEDS: LORazepam 2 MG/4 ML VIAL IV PRN ×2 (22:09→23:07)
[2019-01-22] MEDS ORDERED: cloNIDine HCl 0.1 MG TAB PO ONE (22:39)
[2019-01-23] MEDS: LORazepam 2 MG/4 ML VIAL IV PRN ×2 (00:42→02:41)
[2019-01-23] MEDS: PIPERACILLIN/TAZOBACTAM 4.5 GM in DEXTROSE 5% 100 ML IV SCH ×3 (05:40→22:36)
[2019-01-23] MEDS ORDERED: ALBUMIN 25% 50 ML IV SCH (08:00)
[2019-01-23] MEDS: THIAMINE HCL 100 MG TAB PO SCH (08:09)
[2019-01-23] MEDS: CHECK CLONIDINE PATCH PLACEMENT SCH ×3 (08:09→23:33)
[2019-01-23] MEDS: LACTULOSE SYRUP 20 GM/30 ML UDC PO SCH ×3 (08:09→20:36)
[2019-01-23] MEDS: FOLIC ACID 1 MG TAB PO SCH (08:09)
[2019-01-23] MEDS: ENOXAPARIN INJ 40 MG/0.4 ML SYR SQ SCH (08:09)
[2019-01-23] MEDS: LISINOPRIL 5 MG TAB PO SCH (08:09)
[2019-01-23] MEDS: AMLODIPINE BESYLATE 5 MG TAB PO SCH (08:09)
[2019-01-23] MEDS: MULTIVITAMIN TAB PO SCH (08:10)
[2019-01-23] MEDS: LORazepam 3 MG/6 ML VIAL IV PRN (08:26)
[2019-01-23 08:54] LABS: BUN Creatinine Ratio 7.5 (10-20); Calcium 8.4 mg/dl (8.5-10.1); Creatinine Clr Calc Pharmacy 141.8 ml/min; Est GFR (Non-African American) 110.5; Magnesium 1.9 mg/dl (1.8-2.4); Potassium 3.6 mmol/L (3.5-5.1)
--- NOTE | 2019-01-23 14:18 | Infectious Disease Progress Nt ---
Date of Service January 23, 2019 Assessment & Plan (1) Gram negative sepsis: continue zosyn, discussed with primary, ok to stop doxy. await ID, repeat cultures pending. potential source cellulitis/cat bite vs spb, but no ascites noted on ultrasound. would confrim tetanus status when able and booster if needed. will follow. (2) Alcohol withdrawal: (3) Cellulitis: (4) Cirrhosis: Subjective repeat blood cultures pending, awaiting ID GNR, also with bacillus species, suspect skin contaminant. afebrile. remains on zosyn, tolerating well. Results & Data Vital Signs (Past 12 Hours) Vital Signs Temp Pulse Resp BP BP Pulse Ox 01/23/19 11:44 36.6 C 77 18 143/92 H 97 01/23/19 09:31 36.6 C 79 18 152/109 H 98 01/23/19 08:00 36.4 C L 76 18 194/125 H 191/121 H 94 01/23/19 04:22 65 145/90 H 01/23/19 04:09 36.7 C 79 20 185/116 H 93 Laboratory Results Microbiology 01/22/19 12:57 Blood Aerobic Blood Culture - Preliminary No growth in Aerobic bottle after 24 hours. 01/22/19 12:57 Blood Anaerobic Blood Culture - Preliminary No growth in Anaerobic bottle after 24 hours. 01/22/19 12:50 Blood Aerobic Blood Culture - Preliminary No growth in Aerobic bottle after 24 hours. 01/22/19 12:50 Blood Anaerobic Blood Culture - Preliminary No growth in Anaerobic bottle after 24 hours. 01/18/19 23:44 Blood Aerobic Blood Culture - Preliminary Gram negative bacilli 01/18/19 23:44 Blood Anaerobic Blood Culture - Preliminary Gram negative bacilli 01/19/19 00:04 Blood Aerobic Blood Culture - Preliminary Bacillus 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 01/19/19 00:04 Blood Anaerobic Blood Culture - Preliminary Bacillus 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 Gram negative bacilli PG Care Time/CCT Total # of Minutes Spent Total Time Spent with Patient: Total time spent is greater than 50% in coordination of care (as documented) at patient's floor/unit and/or counseling patient: (1) Cellulitis Laterality: left Site of cellulitis: extremity Site of cellulitis of extremity: lower extremity Qualified Code(s): L03.116 - Cellulitis of left lower limb
--- NOTE | 2019-01-23 14:23 | Hospitalist Progress Note ---
Date of Service January 23, 2019 Assessment & Plan (1) Gram-negative bacteremia: -gram negative bacteremia from admission 01/19/19 blood cultures -was empirically started on Zosyn and BID oral Doxycycline -repeat blood cultures sent on 01/22/19, Infectious disease consulted, continued IV Zosyn, no need for Doxycycline at this time as per Infectious Disease consult on 01/22/19 -the repeat blood cultures from 01/23/19 with no growth to date so far - will continue IV Zosyn for now and appreciate further infectious disease consult on antibiotic selection and duration (2) Cellulitis: -Left lower extremity cellulitis after reported cat bite and injury to his leg with coffee table approximately 3 days ago prior to hospitalization -no orthopedic intervention needed at time as per orthopedic evaluation on 01/21/19 -patient does not recall when last time he had tetanus shot; TDAP shot given inpatient on 01/22/19 -antibiotic management as above (3) Sepsis: -bacteremia from gram negative bacilli -is hemodynamically stable -tachycardia appears to be resolved -antibiotic management as above (4) Alcohol withdrawal: Heavy alcohol use as per history -tachycardia appears to be generally resolved -has been on alcohol withdrawal protocol - gabapentin, prn ativan -now off 1 to 1 monitoring -can monitor off telemetry for now as heart rate is stable -Continue daily thiamine Altered Mental Status is multifactorial - secondary to sepsis and Hyperammonemia and alcoholism -currently improved as of 01/22/19 and 01/23/19 (5) LFT elevation: -transaminitis from alcohol use -transaminitis have improved since being off alcohol while in the hospital Hypoalbuminemia -likely from poor nutrition and alcohol use -holter technician consult; BOOST supplements with meals -patient did get IV albumin from gastroenterology service during this hospital stay but no plans for paracentesis at this time given lack of ascites fluid Hypokalemia -serum potassium 3.2 on 01/22/19; give oral and IV potassium supplements. will trend serum magnesium levels (6) Alcoholism: -management as above, patient counseled on limiting alcohol use after hospital stay (7) Alcohol intoxication: resolved. (8) Cirrhosis: -New diagnosis likely due to history of alcohol use: alcoholic cirrhosis -Hepatosplenomegaly; Cirrhotic appearing liver on abdominal imaging -Hyperammonemia : admission serum ammonia level as 78, now downtrended to 35.8 as of 01/22/19 -was evaluated by Gastroenterology service -Lactulose was started in setting of ammonia elevation, continue lactulose, add Xifaxan 550 mg BID -abdomen ultrasound on 01/21/19 there are no ascites, abdominal exam does not suggest a spontaneous bacterial peritonitis -patient may benefit with outpatient EGD, will need to be counseled on avoiding alcohol, and to avoid taking more than 2 grams of acetaminophen a day, and to avoid more than 2 grams of sodium in daily diet (9) Smoker: -declining nicotine patch (10) DVT prophylaxis: -Lovenox PT/OT evaluation at this time suggests that patient has unsteady gait and may be fall risk had discussed with patient about consider inpatient physical therapy center a fter hospital stay because fo concerns for unsteady gait but is unclear is patient will be agreeable for placement - have discussed with case packer and sealer Full Code [phone] Mother [phone] Subjective patient cooperative on exam. no chest pain. no palpitations. breathing on room air. no shortness of breath. sometimes appears sluggish but responds to questions appropriately Physical Exam Constitutional: comfortable Eyes: EOM intact bilaterally ENMT: external ear and nose normal, oropharynx normal Neck: normal visual inspection Respiratory: normal respiratory effort, lungs clear to auscultation Cardiovascular: RRR, no murmur, no edema Gastrointestinal (Abdomen): Percussion/Palpation: abdomen soft Musculoskeletal: Head/Neck/Chest: normocephalic and head atraumatic Neurologic: CN's II-XI intact bilaterally Psychiatric: Orientation: cooperative Results & Data Vital Signs (Past 12 Hours) Vital Signs Temp Pulse Resp BP BP Pulse Ox 01/23/19 11:44 36.6 C 77 18 143/92 H 97 01/23/19 09:31 36.6 C 79 18 152/109 H 98 01/23/19 08:00 36.4 C L 76 18 194/125 H 191/121 H 94 01/23/19 04:22 65 145/90 H 01/23/19 04:09 36.7 C 79 20 185/116 H 93 (1) Cellulitis Laterality: left Site of cellulitis: extremity Site of cellulitis of extremity: lower extremity Qualified Code(s): L03.116 - Cellulitis of left lower limb
[2019-01-23] MEDS ORDERED: AMLODIPINE BESYLATE 5 MG TAB PO ONE (19:03)
[2019-01-23] MEDS: LORazepam 1 MG/2 ML VIAL IV PRN (19:11)
[2019-01-24] MEDS: PIPERACILLIN/TAZOBACTAM 4.5 GM in DEXTROSE 5% 100 ML IV SCH ×3 (05:59→21:16)
[2019-01-24] MEDS: MULTIVITAMIN TAB PO SCH (07:57)
[2019-01-24] MEDS: LACTULOSE SYRUP 20 GM/30 ML UDC PO SCH ×3 (07:57→21:16)
[2019-01-24] MEDS: AMLODIPINE BESYLATE 5 MG TAB PO SCH (07:59)
[2019-01-24] MEDS: FOLIC ACID 1 MG TAB PO SCH (07:59)
[2019-01-24] MEDS: ENOXAPARIN INJ 40 MG/0.4 ML SYR SQ SCH (07:59)
[2019-01-24] MEDS ORDERED: MAGNESIUM SULFATE / D5W 1 GM/100 ML BAG IV ONE (08:00)
[2019-01-24] MEDS: THIAMINE HCL 100 MG TAB PO SCH (08:02)
[2019-01-24] MEDS: LISINOPRIL 5 MG TAB PO SCH (08:02)
[2019-01-24] MEDS: CHECK CLONIDINE PATCH PLACEMENT SCH (08:09)
[2019-01-24] MEDS: MAGNESIUM OXIDE 400 MG TAB PO SCH (08:42)
--- NOTE | 2019-01-24 11:57 | Hospitalist Progress Note ---
Date of Service January 24, 2019 Assessment & Plan (1) Gram-negative bacteremia: -gram negative bacteremia from admission 01/19/19 blood cultures -was empirically started on Zosyn and BID oral Doxycycline -repeat blood cultures sent on 01/22/19, Infectious disease consulted, continued IV Zosyn, no need for Doxycycline at this time as per Infectious Disease consult on 01/22/19 -the repeat blood cultures from 01/23/19 with no growth to date so far - will continue IV Zosyn for now and appreciate further infectious disease consult on antibiotic selection and duration (2) Cellulitis: -Left lower extremity cellulitis after reported cat bite and injury to his leg with coffee table approximately 3 days ago prior to hospitalization -no orthopedic intervention needed at time as per orthopedic evaluation on 01/21/19 -patient does not recall when last time he had tetanus shot; TDAP shot given inpatient on 01/22/19 -antibiotic management as above (3) Sepsis: -bacteremia from gram negative bacilli -is hemodynamically stable, heart rate generally controlled -antibiotic management as above (4) Alcohol withdrawal: Altered Mental Status is multifactorial - secondary to sepsis and Hyperammonemia and alcoholism -Alcohol Withdrawal protocols were in place from admission including gabapentin and ativan; mental status began to improve by 01/22/19 and and telemetry discontinued by 01/23/19; will hold further gabapentin and ativan protocol by 01/24/19 as patient appears less likely to be at risk of delirium tremens at this time Hypertension -sometimes elevated blood pressures have been attributed to alcohol withdrawal scoring -patient has likely untreated hypertension as outpatient -has been on amlodipine 10 mg daily, lisinopril 10 mg daily. stop clonidine patch (5) LFT elevation: -transaminitis from alcohol use -transaminitis have improved since being off alcohol while in the hospital Hypoalbuminemia -likely from poor nutrition and alcohol use -pencil sorter consult; BOOST supplements with meals -patient did get IV albumin from gastroenterology service during this hospital stay but no plans for paracentesis at this time given lack of ascites fluid Hypokalemia -serum potassium 3.2 on 01/22/19; give oral and IV potassium supplements. serum potassium improved to 3.6 on 01/23/19 -monitor serum potassium and magnesium because of lactulose use (6) Alcoholism: -management as above, patient counseled on limiting alcohol use after hospital stay (7) Alcohol intoxication: resolved. (8) Cirrhosis: -New diagnosis likely due to history of alcohol use: alcoholic cirrhosis -Hepatosplenomegaly; Cirrhotic appearing liver on abdominal imaging -Hyperammonemia : admission serum ammonia level as 78, now downtrended to 35.8 as of 01/22/19 -Lactulose was started in setting of ammonia elevation, continue lactulose, add Xifaxan 550 mg BID -abdomen ultrasound on 01/21/19 there are no ascites, abdominal exam does not suggest a spontaneous bacterial peritonitis -was evaluated by Gastroenterology service -patient may benefit with outpatient EGD, will need to be counseled on avoiding alcohol, and to avoid taking more than 2 grams of acetaminophen a day, and to avoid more than 2 grams of sodium in daily diet (9) Smoker: -declining nicotine patch (10) DVT prophylaxis: -Lovenox PT/OT evaluation at this time suggests that patient has unsteady gait and may be fall risk had discussed with patient about consider inpatient physical therapy center after hospital stay because fo concerns for unsteady gait but is unclear is patient will be agreeable for placement - have discussed with case advocate Full Code [phone] Mother [phone] Subjective Patient has sluggish movements. But able to sit up on his own. verbal and responds to questions appropriately. no acute pain. no fever. no abdomen pain. no vomiting. no shortness of breath. breathing on room air. Physical Exam Constitutional: comfortable Eyes: EOM intact bilaterally ENMT: external ear and nose normal, oropharynx normal Neck: normal visual inspection Respiratory: normal respiratory effort, lungs clear to auscultation Cardiovascular: RRR, no murmur, no edema Gastrointestinal (Abdomen): Percussion/Palpation: abdomen soft Musculoskeletal: Head/Neck/Chest: normocephalic and head atraumatic Neurologic: CN's II-XI intact bilaterally Psychiatric: Orientation: cooperative Results & Data Vital Signs (Past 12 Hours) Vital Signs Temp Pulse Resp BP BP Pulse Ox 01/24/19 09:21 37.5 C 104 H 18 139/78 95 01/24/19 07:31 37.0 C 74 16 116/87 95 01/24/19 02:16 36.8 C 107 H 16 162/112 H 95 (1) Cellulitis Laterality: left Site of cellulitis: extremity Site of cellulitis of extremity: lower extremity Qualified Code(s): L03.116 - Cellulitis of left lower limb
[2019-01-25 06:14] LABS: Basophils # (auto) 0.02 K/uL (0-0.2); Basophils % (auto) 0.2 %; Eosinophils # (auto) 0.21 K/uL (0-0.5); Eosinophils % (auto) 2.1 %; Hematocrit (blood only) 38.8 % (42-52); Hemoglobin 13.4 g/dL (14.0-18.0); Immature Granulocytes # (auto) 0.07 K/uL (0.00-0.02); Immature Granulocytes % (auto) 0.7 %; Lymphocytes # (auto) 2.85 K/uL (1.2-3.4); Lymphocytes % (auto) 28.9 %; Mean Corpuscular Hgb Conc 34.5 g/dL (32-36); Mean Corpuscular Volume 100.5 fL (80-100); Monocytes # (auto) 1.05 K/uL (0.11-0.59); Monocytes % (auto) 10.7 %; Neutrophils # (auto) 5.65 K/uL (1.4-6.5); Neutrophils % (auto) 57.4 %; Platelet Count 181 K/uL (130-400); RDW Coefficient of Variation 14.9 % (11.5-14.5); RDW Standard Deviation 54.4 fL (36.4-46.3); Red Blood Count 3.86 M/uL (4.7-6.1); White Blood Count 9.85 K/uL (4.8-10.8)
[2019-01-25] MEDS: PIPERACILLIN/TAZOBACTAM 4.5 GM in DEXTROSE 5% 100 ML IV SCH ×2 (06:22→13:34)
[2019-01-25 06:49] LABS: BUN Creatinine Ratio 7.9 (10-20); Calcium 8.5 mg/dl (8.5-10.1); Creatinine Clr Calc Pharmacy 139.9 ml/min; Est GFR (African American) 127.3; Est GFR (Non-African American) 109.8; Magnesium 1.9 mg/dl (1.8-2.4); Potassium 3.6 mmol/L (3.5-5.1)
[2019-01-25] MEDS ORDERED: MAGNESIUM SULFATE / D5W 1 GM/100 ML BAG IV ONE (07:05)
[2019-01-25] MEDS ORDERED: ALBUTEROL HFA 8 GM INHALER INH PRN (07:21)
[2019-01-25] MEDS: LACTULOSE SYRUP 20 GM/30 ML UDC PO SCH ×3 (09:07→21:16)
[2019-01-25] MEDS: THIAMINE HCL 100 MG TAB PO SCH (09:08)
[2019-01-25] MEDS: FOLIC ACID 1 MG TAB PO SCH (09:08)
[2019-01-25] MEDS: MULTIVITAMIN TAB PO SCH (09:08)
[2019-01-25] MEDS: LISINOPRIL 5 MG TAB PO SCH (09:08)
[2019-01-25] MEDS: MAGNESIUM OXIDE 400 MG TAB PO SCH (09:09)
[2019-01-25] MEDS: ENOXAPARIN INJ 40 MG/0.4 ML SYR SQ SCH (09:09)
[2019-01-25] MEDS: AMLODIPINE BESYLATE 5 MG TAB PO SCH (09:09)
--- NOTE | 2019-01-25 13:01 | Hospitalist Progress Note ---
Date of Service January 25, 2019 Assessment & Plan (1) Gram-negative bacteremia: (2) Cellulitis: -Left lower extremity cellulitis after reported cat bite and injury to his leg with coffee table approximately 3 days ago prior to hospitalization -gram negative bacteremia from admission 01/19/19 blood cultures which speciated as Pasteurella multocida and Bacillus 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 -during this hospital stay, patient was empirically started on Zosyn and BID oral Doxycycline -no orthopedic intervention needed at time as per orthopedic evaluation on 01/21/19 -patient does not recall when last time he had tetanus shot; TDAP shot given inpatient on 01/22/19 -repeat blood cultures sent on 01/22/19, Infectious disease consulted, continued IV Zosyn, no need for Doxycycline at this time while on Zosyn as per Infectious Disease consult on 01/22/19 -the repeat blood cultures from 01/22/19 is no growth to date after 48 hours in both bottles as of 01/24/19 -will plan to transition off IV Zosyn antibiotics (3) Sepsis: -antibiotics management as above; normal heart rate and generally controlled blood pressures (4) Alcohol withdrawal: Altered Mental Status is multifactorial - secondary to sepsis and Hyperammonemia and alcoholism -Alcohol Withdrawal protocols were in place from admission including gabapentin and ativan; mental status began to improve by 01/22/19 and and telemetry discontinued by 01/23/19; held further gabapentin and ativan protocol by 01/24/19 as patient appears less likely to be at risk of delirium tremens at this time Hypertension -review of outpatient notes that patient was prescribed in the past of lisinopril/HCTZ, but patient nonadherent -during hospital stay, elevated blood pressures have been attributed to alcohol withdrawal scoring -but patient has likely under treated hypertension as outpatient -have been off clonidine patch; -continue amlodipine 10 mg and lisinopril 10 mg daily -start spirolactone 12.5 mg daily (5) LFT elevation: transaminitis from alcohol use -transaminitis have improved since being off alcohol while in the hospital Hypoalbuminemia -likely from poor nutrition and alcohol use -patient did get IV albumin from gastroenterology service during this hospital stay but no plans for paracentesis at this time given lack of ascites fluid -BOOST supplements with meals (6) Alcoholism: -management as above, patient counseled on limiting alcohol use after hospital stay (7) Alcohol intoxication: resolved. (8) Cirrhosis: -New diagnosis likely due to history of alcohol use: alcoholic cirrhosis -Hepatosplenomegaly; Cirrhotic appearing liver on abdominal imaging -Hyperammonemia : admission serum ammonia level as 78, now downtrended to 35.8 as of 01/22/19 and 42 as of 01/25/19 -Lactulose was started in setting of ammonia elevation, continue lactulose 20 gram TID -abdomen ultrasound on 01/21/19 there are no ascites, abdominal exam does not suggest a spontaneous bacterial peritonitis -was evaluated by Gastroenterology service -patient may benefit with outpatient EGD, counseled on avoiding alcohol, and to avoid taking more than 2 grams of acetaminophen a day, and to avoid more than 2 grams of sodium in daily diet -start spirolactone 12.5 mg daily Hypokalemia -serum potassium 3.2 on 01/22/19; give oral and IV potassium supplements. serum potassium improved to 3.6 on 01/23/19 -because of lactulose, recommended to patient of close monitoring of electrolytes on outpatient basis (9) Smoker: -advise to cut back on tobacco use -prescription of nicotine patch sent to his pharmacy if patient prefers to use (10) DVT prophylaxis: -Lovenox Patient to continue to ambulate as able because he and his family's preference is to be discharge to home at end of hospital stay Full Code [phone] Mother [phone] Subjective no fever. on IV Zosyn. no chest pain. no abdominal pain. no vomiting. no headache. no dizziness. had long discussion with patient and and his family member about current health issues. Physical Exam Constitutional: comfortable Eyes: EOM intact bilaterally ENMT: external ear and nose normal, oropharynx normal Neck: normal visual inspection Respiratory: normal respiratory effort, lungs clear to auscultation Cardiovascular: RRR, no murmur, no edema Gastrointestinal (Abdomen): Percussion/Palpation: abdomen soft Musculoskeletal: Head/Neck/Chest: normocephalic and head atraumatic Neurologic: CN's II-XI intact bilaterally Psychiatric: Orientation: cooperative Results & Data Vital Signs (Past 12 Hours) Vital Signs Temp Pulse Resp BP Pulse Ox 01/25/19 06:34 37.4 C 89 20 145/83 H 97 (1) Cellulitis Laterality: left Site of cellulitis: extremity Site of cellulitis of extremity: lower extremity Qualified Code(s): L03.116 - Cellulitis of left lower limb
[2019-01-25] MEDS: SPIRONOLACTONE 25 MG TAB PO SCH (13:52)
[2019-01-25] MEDS: AMOXICILLIN/CLAVULANATE 875 MG TAB PO SCH (18:04)
--- NOTE | 2019-01-26 08:32 | Infectious Disease Progress Nt ---
Date of Service January 26, 2019 Assessment & Plan (1) Gram negative sepsis: secondary to cat bite, tolerating Augmentin, repeat cultures negative, afebrile. Agree with Augmentin, would give 14 days from first negative blood culture (01/22), ok for d/c from ID standpoint when otherwise stable. (2) Alcohol withdrawal: (3) Cellulitis: (4) Cirrhosis: Subjective blood cultures growing Pasteurella repeat cultures are negative. has been trans itioned to Augmentin, tolerating well. remains afebrile. wbc 9/8, 9.8. Results & Data Vital Signs (Past 12 Hours) Vital Signs Temp Pulse Pulse Resp BP Pulse Ox 01/26/19 07:33 37.4 C 78 20 140/90 94 01/25/19 23:13 37.4 C 117 H 23 148/84 H 96 Laboratory Results Microbiology 01/18/19 23:44 Blood Aerobic Blood Culture - Final Pasteurella multocida 01/18/19 23:44 Blood Anaerobic Blood Culture - Final Pasteurella multocida 01/22/19 12:57 Blood Aerobic Blood Culture - Preliminary No growth in Aerobic bottle after 48 hours. 01/22/19 12:57 Blood Anaerobic Blood Culture - Preliminary No growth in Anaerobic bottle after 48 hours. 01/22/19 12:50 Blood Aerobic Blood Culture - Preliminary No growth in Aerobic bottle after 48 hours. 01/22/19 12:50 Blood Anaerobic Blood Culture - Preliminary No growth in Anaerobic bottle after 48 hours. 01/19/19 00:04 Blood Aerobic Blood Culture - Final Bacillus 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 01/19/19 00:04 Blood Anaerobic Blood Culture - Final Bacillus 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 Pasteurella multocida PG Care Time/CCT Total # of Minutes Spent Total Time Spent with Patient: Total time spent is greater than 50% in coordination of care (as documented) at patient's floor/unit and/or counseling patient: (1) Cellulitis Laterality: left Site of cellulitis: extremity Site of cellulitis of extremity: lower extremity Qualified Code(s): L03.116 - Cellulitis of left lower limb
[2019-01-26] MEDS: LISINOPRIL 5 MG TAB PO SCH (09:43)
[2019-01-26] MEDS: AMOXICILLIN/CLAVULANATE 875 MG TAB PO SCH (09:44)
[2019-01-26] MEDS: SPIRONOLACTONE 25 MG TAB PO SCH (09:44)
[2019-01-26] MEDS: AMLODIPINE BESYLATE 5 MG TAB PO SCH (09:45)
[2019-01-26] MEDS: FOLIC ACID 1 MG TAB PO SCH (09:45)
[2019-01-26] MEDS: ENOXAPARIN INJ 40 MG/0.4 ML SYR SQ SCH (09:45)
[2019-01-26] MEDS: MAGNESIUM OXIDE 400 MG TAB PO SCH (09:45)
[2019-01-26] MEDS: LACTULOSE SYRUP 20 GM/30 ML UDC PO SCH (09:45)
[2019-01-26] MEDS: THIAMINE HCL 100 MG TAB PO SCH (09:45)
[2019-01-26] MEDS: MULTIVITAMIN TAB PO SCH (09:45)
--- NOTE | 2019-01-26 10:59 | Hospitalist Progress Note ---
Date of Service January 26, 2019 Assessment & Plan (1) Gram-negative bacteremia: -gram negative bacteremia from admission 01/19/19 blood cultures which speciated as Pasteurella multocida and Bacillus 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 (2) Cellulitis: -Left lower extremity cellulitis after reported cat bite and injury to his leg with coffee table approximately 3 days ago prior to hospitalization -gram negative bacteremia from admission 01/19/19 blood cultures which speciated as Pasteurella multocida and Bacillus 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 -during this hospital stay, patient was empirically started on Zosyn and BID oral Doxycycline -no orthopedic intervention needed at time as per orthopedic evaluation on 01/21/19 -patient does not recall when last time he had tetanus shot; TDAP shot given inpatient on 01/22/19 -repeat blood cultures sent on 01/22/19, Infectious disease consulted, continued IV Zosyn, no need for Doxycycline at this time while on Zosyn as per Infectious Disease consult on 01/22/19 -the repeat blood cultures from 01/22/19 is no growth to date after 48 hours in both bottles as of 01/24/19 -was transition from IV Zosyn antibiotics to Augmentin starting evening of 01/25/19 -01/26/19: as per infectious disease recommendations: patient can complete the ora l antibiotic regimen from first negative blood culture (01/22/19) for 14 days. Patient is instructed to take Augmentin twice a day with last day of antibiotic as 02/05/19 (3) Sepsis: -antibiotics management as above; normal heart rate and generally controlled blood pressures (4) Alcohol withdrawal: Altered Mental Status is multifactorial - secondary to sepsis and Hyperammonemia and alcoholism -Alcohol Withdrawal protocols were in place from admission including gabapentin and ativan; mental status began to improve by 01/22/19 and and telemetry discontinued by 01/23/19; held further gabapentin and ativan protocol by 01/24/19 as patient appears less likely to be at risk of delirium tremens at this time Hypertension -review of outpatient notes that patient was prescribed in the past of lisinopril/HCTZ, but patient nonadherent -during hospital stay, elevated blood pressures have been attributed to alcohol withdrawal scoring -but patient has likely under treated hypertension as outpatient -have been off clonidine patch; -continue amlodipine 10 mg and lisinopril 10 mg daily -continue spirolactone 12.5 mg daily (5) LFT elevation: transaminitis from alcohol use -transaminitis have improved since being off alcohol while in the hospital Hypoalbuminemia -likely from poor nutrition and alcohol use -patient did get IV albumin from gastroenterology service during this hospital stay but no plans for paracentesis at this time given lack of ascites fluid -BOOST supplements with meals (6) Alcoholism: -management as above, patient counseled on limiting alcohol use after hospital stay (7) Alcohol intoxication: resolved. (8) Cirrhosis: -New diagnosis likely due to history of alcohol use: alcoholic cirrhosis -Hepatosplenomegaly; Cirrhotic appearing liver on abdominal imaging -Hyperammonemia : admission serum ammonia level as 78, now downtrended to 35.8 as of 01/22/19 and 42 as of 01/25/19 -Lactulose was started in setting of ammonia elevation on this hospital stay, continue lactulose 20 gram TID -abdomen ultrasound on 01/21/19 there are no ascites, abdominal exam does not suggest a spontaneous bacterial peritonitis -was evaluated by Gastroenterology service -patient may benefit with outpatient EGD, counseled on avoiding alcohol, and to avoid taking more than 2 grams of acetaminophen a day, and to avoid more than 2 grams of sodium in daily diet -start spirolactone 12.5 mg daily Hypokalemia -serum potassium 3.2 on 01/22/19; give oral and IV potassium supplements. serum potassium improved to 3.6 on 01/23/19 -because of lactulose, recommended to patient of close monitoring of electrolytes on outpatient basis (9) Smoker: -advise to cut back on tobacco use -prescription of nicotine patch sent to his pharmacy if patient prefers to use to quit smoking (10) DVT prophylaxis: -Lovenox Patient to continue to ambulate as able because he and his family's preference is to be discharge to home at end of hospital stay Full Code [phone] Mother [phone] Discharge diagnosis gram negative bacteremia (Pasteurella multocida and Bacillus 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), sepsis, left leg cellullitis, alcoholic intoxication, alcohol withdrawal syndrome, Hypertension, alcoholic cirrhosis, Hyperammonemia, Hypoalbuminemia Discharge to home under care of his family Patient is instructed to take Augmentin (amoxicillin/clavunlanate 875mg) twice a day with last day of antibiotic as 02/05/19 -continue amlodipine 10 mg and lisinopril 10 mg daily; spirolactone 12.5 mg daily; continue lactulose 20 gram TID -albuterol sulfate 2 puffs every 6 hours as need for shortness of breath or wheezing -prescription of nicotine patch sent to his pharmacy if patient prefers to use to quit smoking all prescriptions sent to [facility] [address] [place] [address] [id number] counseled on avoiding alcohol, and to avoid taking more than 2 grams of acetaminophen a day, and to avoid more than 2 grams of sodium in daily diet patient can take BOOST supplements with meals and these are available over the counter or at supermarkets 01/29/2019 9:40 AM Provider Davon Barone MD Department [facility] (to check electrolytes and serum magnesium and blood pressure while on new medications) 02/03/2019 9:00 AM Provider PILI Ibrahim Department Gastroenterology, [facility] (for further management of cirrhosis) Subjective no chest pain. no shortness of breath. no abdomen pain. no vomiting. no headache. no dizziness. family at bedside and we discussed discharge plans at length Physical Exam Constitutional: comfortable Eyes: EOM intact bilaterally ENMT: external ear and nose normal, oropharynx normal Neck: normal visual inspection Respiratory: normal respiratory effort, lungs clear to auscultation Cardiovascular: RRR, no murmur, no edema Gastrointestinal (Abdomen): Percussion/Palpation: abdomen soft (nontender, bowel sounds present) Musculoskeletal: Head/Neck/Chest: normocephalic and head atraumatic Neurologic: CN's II-XI intact bilaterally Psychiatric: Orientation: cooperative Results & Data Vital Signs (Past 12 Hours) Vital Signs Temp Pulse Pulse Resp BP Pulse Ox 01/26/19 07:33 37.4 C 78 20 140/90 94 01/25/19 23:13 37.4 C 117 H 23 148/84 H 96 (1) Cellulitis Laterality: left Site of cellulitis: extremity Site of cellulitis of extremity: lower extremity Qualified Code(s): L03.116 - Cellulitis of left lower limb
--- NOTE | 2019-01-26 11:10 | Discharge Summary ---
Date of Service January 26, 2019 Admission HPI Per Admitting Provider History obtained from patient, family, and records. Medical history significant for hypertension, gout, COPD as per records, ongoing tobacco/alcohol abuse. Last month, patient bit by household cat on the left leg. Progressive swelling over the next few weeks. Patient refused to seek medical attention. Self-medication with topical antibiotic Rx as per . No chest pain, no S OB. Abdomen distended but not painful as per patient. At the ER, patient received Cefepime for sepsis. Medical History as above TDAP January 2010 No prior history of alcohol withdrawal seizures or confinement for alcohol withdrawal as per patient family. Surgical History : Penile wart fulguration, right forearm surgery Family History : Heart disease Personal/Social history : 1.5 packs daily, daily alcohol intake, unemployed Admission Exam Per Admitting Provider GENERAL: Uncomfortable, anxious, tremulous, obese, unkempt, no respiratory distress, alcoholic fetor SKIN: Normal color, warm HEENT: [place] palpebral conjunctivae, no ptosis, black discoloration upper lip, dry buccal mucosa NECK : Supple, short neck, no tenderness CHEST : Decreased breath sounds, no tenderness HEART : Tachycardic, no obvious murmurs ABDOMEN: distention, nontender EXTREMITIES : L lower leg induration with tenderness, no other conspicuous deformities noted NEUROLOGIC : Coherent, no facial asymmetry, no other gross focality except for intention tremors, gait and stance not assessed Principal Diagnosis gram negative bacteremia (Pasteurella multocida and Bacillus 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), sepsis, left leg cellullitis, alcoholic intoxication, alcohol wi thdrawal syndrome, Hypertension, alcoholic cirrhosis, Hyperammonemia, Hypoalbuminemia Discharge Exam Constitutional comfortable Eyes EOM intact bilaterally ENMT external ear and nose normal, oropharynx normal Neck normal visual inspection Respiratory normal respiratory effort, lungs clear to auscultation Cardiovascular RRR, no murmur, no edema Gastrointestinal (Abdomen) Percussion/Palpation: abdomen soft (nontender, bowel sounds present) Musculoskeletal Head/Neck/Chest: normocephalic and head atraumatic Neurologic CN's II-XI intact bilaterally Psychiatric Orientation: cooperative Discharge Data Allergies Allergy/AdvReac Type Severity Reaction Status Date / Time No Known Allergies Allergy Unverified 03/28/17 21:27 Consultations 01/18/19 23:37 ED Decision to Admit Stat 01/19/19 01:42 Consult Case Management - Discharge Planning Routine 01/19/19 06:24 Consult Gastroenterology Routine 01/21/19 11:35 Consult Orthopedic Surgery Routine 01/22/19 12:29 Consult Infectious Diseases Routine Ordered Studies 01/18/19 20:16 US venous doppler LE BI Stat 01/18/19 23:35 CT abd pelvis IV con only Urgent 01/21/19 08:51 US abdomen limited Routine Hospital Course (1) Gram-negative bacteremia: -gram negative bacteremia from admission 01/19/19 blood cultures which speciated as Pasteurella multocida and Bacillus 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 (2) Cellulitis: -Left lower extremity cellulitis after reported cat bite and injury to his leg with coffee table approximately 3 days ago prior to hospitalization -gram negative bacteremia from admission 01/19/19 blood cultures which speciated as Pasteurella multocida and Bacillus 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 -during this hospital stay, patient was empirically started on Zosyn and BID oral Doxycycline -no orthopedic intervention needed at time as per orthopedic evaluation on 01/21/19 -patient does not recall when last time he had tetanus shot; TDAP shot given inpatient on 01/22/19 -repeat blood cultures sent on 01/22/19, Infectious disease consulted, continued IV Zosyn, no need for Doxycycline at this time while on Zosyn as per Infectious Disease consult on 01/22/19 -the repeat blood cultures from 01/22/19 is no growth to date after 48 hours in both bottles as of 01/24/19 -was transition from IV Zosyn antibiotics to Augmentin starting evening of 01/25/19 -01/26/19: as per infectious disease recommendations: patient can complete the oral antibiotic regimen from first negative blood culture (01/22/19) for 14 days. Patient is instructed to take Augmentin twice a day with last day of antibiotic as 02/05/19 (3) Sepsis: -antibiotics management as above; normal heart rate and generally controlled blood pressures (4) Alcohol withdrawal: Altered Mental Status is multifactorial - secondary to sepsis and Hyperammonemia and alcoholism -Alcohol Withdrawal protocols were in place from admission including gabapentin and ativan; mental status began to improve by 01/22/19 and and telemetry discontinued by 01/23/19; held further gabapentin and ativan protocol by 01/24/19 as patient appears less likely to be at risk of delirium tremens at this time Hypertension -review of outpatient notes that patient was prescribed in the past of lisinopril/HCTZ, but patient nonadherent -during hospital stay, elevated blood pressures have been attributed to alcohol withdrawal scoring -but patient has likely under treated hypertension as outpatient -have been off clonidine patch; -continue amlodipine 10 mg and lisinopril 10 mg daily -continue spirolactone 12.5 mg daily (5) LFT elevation: transaminitis from alcohol use -transaminitis have improved since being off alcohol while in the hospital Hypoalbuminemia -likely from poor nutrition and alcohol use -patient did get IV albumin from gastroenterology service during this hospital stay but no plans for paracentesis at this time given lack of ascites fluid -BOOST supplements with meals (6) Alcoholism: -management as above, patient counseled on limiting alcohol use after hospital stay (7) Alcohol intoxication: resolved. (8) Cirrhosis: -New diagnosis likely due to history of alcohol use: alcoholic cirrhosis -Hepatosplenomegaly; Cirrhotic appearing liver on abdominal imaging -Hyperammonemia : admission serum ammonia level as 78, now downtrended to 35.8 as of 01/22/19 and 42 as of 01/25/19 -Lactulose was started in setting of ammonia elevation on this hospital stay, continue lactulose 20 gram TID -abdomen ultrasound on 01/21/19 there are no ascites, abdominal exam does not suggest a spontaneous bacterial peritonitis -was evaluated by Gastroenterology service -patient may benefit with outpatient EGD, counseled on avoiding alcohol, and to avoid taking more than 2 grams of acetaminophen a day, and to avoid more than 2 grams of sodium in daily diet -start spirolactone 12.5 mg daily Hypokalemia -serum potassium 3.2 on 01/22/19; give oral and IV potassium supplements. 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), sepsis, left leg cellullitis, alcoholic intoxication, alcohol withdrawal syndrome, Hypertension, alcoholic cirrhosis, Hyperammonemia, Hypoalbuminemia Discharge to home under care of his family Patient is instructed to take Augmentin (amoxicillin/clavunlanate 875mg) twice a day with last day of antibiotic as 02/05/19 -continue amlodipine 10 mg and lisinopril 10 mg daily; spirolactone 12.5 mg daily; continue lactulose 20 gram TID -albuterol sulfate 2 puffs every 6 hours as need for shortness of breath or wheezing -prescription of nicotine patch sent to his pharmacy if patient prefers to use to quit smoking all prescriptions sent to [facility] [address] [place] [address] [id number] counseled on avoiding alcohol, and to avoid taking more than 2 grams of acetaminophen a day, and to avoid more than 2 grams of sodium in daily diet patient can take BOOST supplements with meals and these are available over the counter or at [employer] 01/29/2019 9:40 AM Provider Davon Barone MD Department [facility] (to check electrolytes and serum magnesium and blood pressure while on new medications) 02/03/2019 9:00 AM Provider PILI Ibrahim Department Gastroenterology, [facility] (for further management of cirrhosis) Total Time Total Time Spent Total Time Spent (In Minutes): 40 minutes Total Time Includes: Examination of the Patient, Discharge Planning, Medication Reconciliation and Communication With Other Providers Discharge Plan Discharge Items Patient Disposition: Home - Self-Care Reason For Visit: SEPSIS Discharge Diagnosis: gram negative bacteremia (Pasteurella multocida and Bacillus 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), sepsis, left leg cellullitis, alcoholic intoxication, alcohol withdrawal syndrome, Hypertension, alcoholic cirrhosis, Hyperammonemia, Hypoalbuminemia Condition: Good Discharge Goals: Improve disease control Activity: Resume your previous activity Non-emergency contact: Primary Care Provider and Psychiatric Aide Call non-emergency contact if: you have any medication questions Follow-up/Referrals: Ml Ruffin MD [Primary Care Provider] - Diet: Low Sodium (2gm) Addtl Provider Instructions: Discharge to home under care of his family Patient is instructed to take Augmentin (amoxicillin/clavunlanate 875mg) twice a day with last day of antibiotic as 02/05/19 -continue amlodipine 10 mg and lisinopril 10 mg daily; spirolactone 12.5 mg daily; continue lactulose 20 gram TID -albuterol sulfate 2 puffs every 6 hours as need for shortness of breath or wheezing -prescription of nicotine patch sent to his pharmacy if patient prefers to use to quit smoking all prescriptions sent to [facility] [address] [place] [id number] counseled on avoiding alcohol, and to avoid taking more than 2 grams of acetaminophen a day, and to avoid more than 2 grams of sodium in daily diet patient can take BOOST supplements with meals and these are available over the counter or at supermarkets 01/29/2019 9:40 AM Provider Davon Barone MD Department [facility] (to check electrolytes and serum magnesium and blood pressure while on new medications) 02/03/2019 9:00 AM Provider PILI Ibrahim Department Gastroenterology, [facility] (for further management of cirrhosis) Prescriptions: New albuterol sulfate [ProAir HFA] 90 mcg/actuation HFA aerosol inhaler 2 puffs INH Q6H PRN (Reason: shortness of breath or wheezing) 30 Days Qty: 8.5 RF: 0 lisinopril 10 mg tablet 10 mg PO DAILY 30 Days Qty: 30 RF: 0 amlodipine 10 mg tablet 10 mg PO DAILY 30 Days Qty: 30 RF: 0 lactulose 20 gram/30 mL Solution 30 ml PO TID 30 Days Qty: 2700 RF: 0 spironolactone 25 mg Tablet 12.5 mg PO DAILY 30 Days Qty: 15 RF: 0 nicotine [Nicoderm CQ] 21 mg/24 hr Patch 24 Hour 21 mg transdermal QAM 28 Days Qty: 28 RF: 0 amoxicillin-pot clavulanate 875-125 mg Tablet 1 tab PO BIDM 11 Days Qty: 22 RF: 0 Discontinued ibuprofen [Advil] 200 mg Tablet 400 - 800 mg PO TID PRN (Reason: Pain) RF: 0 Stand-Alone Forms: [facility]/Other Patient Handouts: Cellulitis Dc, Cirrhosis Liver Dc Discharge Orders: Discharge Order (Routine); Ordered 01/26/19 Ordered By: Zen Linares Admission Data Admit Date/Time: 01/19/19 00:39 Attending Provider: Zen Linares Admit Provider: Sam Gonzales Primary Care Provider: Ml Ruffin Other Providers: Sam Gonzales ; Kevin Guzman ; Jazzmine Gold ; Vernell Chris ; Anjum Lopez ; Florin Navarro ; Lyndsey Killian ; Mayra Haney ; Rafat Daly ; Scar Aguirre ; Lillian Sheets ; Katlyn Kline ; Shannan Shearer ; Daniela Fletcher ; Trudy Ashley ; Steven Tucker ; Rosalee Omalley Service: Medical
== END 2019-01-26 11:49 | disposition home or self-care (01) | DRG 872 ==
LOC: ED 19:52 → SUATTDRO 01-19 00:39 → 2W 01-19 00:39 → 3N 01-24 09:08
DX: F10.239 Alcohol dependence with withdrawal, unspecified; F10.221 Alcohol dependence with intoxication delirium; E87.6 Hypokalemia; I10 Essential (primary) hypertension; Y92.019 Unspecified place in single-family (private) house as the place of occurrence of the external cause; L03.116 Cellulitis of left lower limb; J44.9 Chronic obstructive pulmonary disease, unspecified; A41.59 Other Gram-negative sepsis; W55.01XA Bitten by cat, initial encounter; K70.30 Alcoholic cirrhosis of liver without ascites; K70.10 Alcoholic hepatitis without ascites; K76.6 Portal hypertension; E88.09 Other disorders of plasma-protein metabolism, not elsewhere classified; F17.200 Nicotine dependence, unspecified, uncomplicated